=== PATIENT | female | born 1955 | race Caucasian/White ===

== ENCOUNTER 2016-07-20 00:05 | Emergency (ER) | payer OTHER ==
[~2016-07-20 00:05] MED LIST: AMLO5TAB2 PO; BUSP5TAB PO; DIAZ5 PO; OLAN5TAB PO
[2016-07-20 00:08] VITALS: BP 143/67; PULSE 84; RESP 16; TEMP 97.5; O2SAT 97
[2016-07-20 01:44] VITALS: BP 114/80; PULSE 74; RESP 16; O2SAT 99
[2016-07-20] MEDS ORDERED: ALPRAZolam 0.5 MG TAB PO ONE (02:00)
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
--- NOTE | 2016-07-20 08:26 | EKG ---
Date Performed: 07/20/2016 Time Performed: 01:58:01 PTAGE: 61 years EKG: Sinus rhythm POOR R WAVE PROGRESSION ABNORMAL ECG PREVIOUS TRACING : 07/02/2016 00.57 No significant change from previous tracing noted. DOCTOR: Darius Beckman Interpretating Date/Time 07/20/2016 08:24:58
== END 2016-07-20 06:00 | disposition home or self-care (01) ==
LOC: NEPC 00:05
DX: F41.9 Anxiety disorder, unspecified (principal); I10 Essential (primary) hypertension
CPT/HCPCS: 93005

== ENCOUNTER 2016-08-02 18:28 | Emergency (ER) | payer OTHER ==
[2016-08-02 18:30] VITALS: BP 135/78; PULSE 97; RESP 16; TEMP 97.9; O2SAT 96
--- NOTE | 2016-08-02 18:43 | PD ---
HPI Chief Complaint: Anxiety Time Seen by Provider: 18:43 Travel History International Travel<30 days: No Contact w/Intl Traveler<30days: No Traveled to known affect area: No History of Present Illness HPI 61-year-old female with history of anxiety, depression, hypertension and IBS presents to the ED for evaluation of anxiety. Patient states that she has been unable sleep and is feeling very anxious. She states that she has been seen in the ED before provided with Xanax and allowed to sleep. She denies chest pain, palpitations, nausea, vomiting, diaphoresis. She denies abdominal pain, dysuria. She states that she has a psychiatrist but that the medication she was provided have not helped her sleep. She denies suicidal or homicidal ideation. She states repeatedly that she would like to be administered Xanax and allowed to sleep. PFSH Past Medical History Anxiety: Yes (panic attacks) Depression: Yes Heart Rhythm Problems: No Cancer: No Cardiac Catheterization: No Cardiovascular Problems: Yes (HTN) High Cholesterol: No Congestive Heart Failure: No Diminished Hearing: No Diverticulitis: Yes Endocrine: No Gastrointestinal Disorders: Yes (IRRITABLE BOWEL SYNDROME, ) Genitourinary: No Hiatal Hernia: Yes Heparin Induced Thrombocytopen: No Hypertension: Yes Immune Disorder: No Implanted Vascular Access Dvce: No Musculoskeletal: No Neurologic: No Psychiatric: Yes Respiratory: No Immunizations Current: Yes Ulcer: Yes Menopausal: Yes : 1 Para: 1 Miscarriage: 0 : 0 Past Surgical History Abdominal Surgery: Yes (c section) Section: Yes Coronary Artery Bypass Graft: No Hysterectomy: No Tonsillectomy: Yes Other Surgery: Yes Family History Family Hypercholesterolemia: Yes Social History Alcohol Use: No Tobacco Use: No Substance Use: No Allergies-Medications (Allergen,Severity, Reaction): Coded Allergies: Cipro (Verified Allergy, Severe, 08/02/16) Vicodin (Verified Allergy, Severe, VOMITING, 08/02/16) Reported Meds & Prescriptions Reported Meds & Active Scripts Active Reported Olanzapine 5 Mg Tab 5 Mg PO HS Valium (Diazepam) 5 Mg Tab 5 Mg PO HS PRN Buspirone (Buspirone HCl) 5 Mg Tab 5 Mg PO BID Amlodipine (Amlodipine Besylate) 5 Mg Tab 5 Mg PO DAILY Review of Systems Except as stated in HPI: all other systems reviewed are Neg Physical Exam Narrative GENERAL: Well-nourished, well-developed white female no acute distress. PSYCHIATRIC: No delusional thought processes. No hallucinations. Flat affect. SKIN: Warm and dry. HEAD: Normocephalic. EYES: No scleral icterus. No injection or drainage. NECK: Supple, trachea midline. No JVD or lymphadenopathy. CARDIOVASCULAR: Regular rate and rhythm without murmurs, gallops, or rubs. 2+ DP and radial pulses bilaterally. RESPIRATORY: Breath sounds clear and equal bilaterally. No accessory muscle use. GASTROINTESTINAL: Abdomen soft, non-tender, nondistended. MUSCULOSKELETAL: No cyanosis, or edema. Patient is ambulatory, moves extremities spontaneously. BACK: Nontender without obvious deformity. No CVA tenderness. Data Data Last Documented VS Vital Signs Date Time Temp Pulse Resp B/P Pulse Ox O2 Delivery O2 Flow Rate FiO2 08/02/16 18:30 97.9 97 16 135/78 96 Orders Electrocardiogram (08/02/16 18:45) Hydroxyzine Hcl Inj (Vistaril Inj) (08/02/16 19:45) MDM Medical Decision Making Medical Screen Exam Complete: Yes Emergency Medical Condition: Yes Interpretation(s) EKG rate 78, sinus rhythm. Normal intervals. Normal axis. No ischemic changes. Reviewed by Dr. Davis. Differential Diagnosis Anxiety versus insomnia versus malingering versus drug seeking behavior versus less likely ACS versus other Narrative Course 61-year-old female with history of hypertension and IBS presents to the ED for evaluation of anxiety. Patient states that she has been unable sleep and is feeling very anxious. She states that she has been seen in the ED before provided with Xanax and allowed to sleep. She denies chest pain, palpitations, nausea, vomiting, diaphoresis. She denies abdominal pain, dysuria. She states that she has a psychiatrist but that the medication she was provided have not helped her sleep. She denies suicidal or homicidal ideation. She states repeatedly that she would like to be administered Xanax and allowed to sleep. Vitals reviewed. Physical exam reveals a nontoxic-appearing white female with a flat affect in no acute distress. Chest clear to auscultation bilaterally, abdomen soft and nontender. EKG as above. Review of the record reveals that the patient has 12 visits to the ED with the same complaint since February 2016. She underwent myocardial perfusion scan in October 2015 which was negative. She had a full workup with EKG, chest x-ray and labs in late June. Review of [facility] reveals that the patient is prescribed diazepam by a provider in the area. I do not feel further laboratory work would be fruitful. Administered IM Vistaril. ON recheck the patient is sleeping soundly in the stretcher. After being awakened for discharge she states that she is still anxious, again request Xanax. She was then observed to wander through the emergency department , looking into other patient's rooms. I instructed the patient to establish good sleep habits, follow-up with her psychiatrist or primary care provider. I advised her that seeking sleep medications in the emergency room is an inappropriate use of resources that could be better served on an outpatient basis. This patient is stable and discharged home. Diagnosis Primary Impression: Anxiety Referrals: Primary Care Physician Patient Instructions: Anxiety (ED), General Instructions Additional Instructions: Rest, hydrate. Establish good sleep habits including going to bed at the same time every night , in a darkened room, avoiding stimulants after 2 PM. This is an inefficient way to manage anxiety, please see your primary care provider or psychiatrist for sleep aids or prescription anxiolytics. Return to the ED for any urgent or emergent medical condition. Disposition: DISCHARGE HOME Condition: Stable Mamie Bentley Aug 02, 2016 18:43
[2016-08-02] MEDS ORDERED: hydrOXYzine HCL 50 MG/ML VIAL IM ONE (19:45)
[2016-08-02 21:16] VITALS: BP 118/63; TEMP 98.5
--- NOTE | 2016-08-03 17:21 | EKG ---
Date Performed: 08/02/2016 Time Performed: 18:51:43 PTAGE: 61 years EKG: Sinus rhythm Compared to prior tracing no significant change NORMAL ECG PREVIOUS TRACING : 07/20/2016 01.58 DOCTOR: Alley Villarreal Interpretating Date/Time 08/03/2016 17:20:38
== END 2016-08-02 21:20 | disposition home or self-care (01) ==
LOC: NEPA 18:28
DX: F41.9 Anxiety disorder, unspecified (principal); I10 Essential (primary) hypertension
CPT/HCPCS: 93005; 96372; 99283; J3410

== ENCOUNTER 2016-08-11 08:54 | Emergency (ER) | payer OTHER ==
[~2016-08-11] VITALS: Ht 152.4 cm; Wt 50.0 kg
--- NOTE | 2016-08-11 08:58 | PD ---
HPI Chief Complaint: suicidal ideation Time Seen by Provider: 08:57 Travel History International Travel<30 days: No Contact w/Intl Traveler<30days: No Traveled to known affect area: No History of Present Illness HPI 61-year-old female with history of depression, anxiety, seen in the emergency department several times for issues with anxiety, brought in by ambulance from home stating that she has not slept in the last 2 days and that she does not feel right and she feels like committing suicide by overdosing on aspirin. Patient reports that she feels somewhat nauseous. No other physical complaints. She has not ingested anything or done anything to harm herself. No fevers or recent illness. The patient was placed under [place] act by me after I assessed her. PFSH Past Medical History Anxiety: Yes (panic attacks) Depression: Yes Heart Rhythm Problems: No Cancer: No Cardiac Catheterization: No Cardiovascular Problems: Yes (HTN) High Cholesterol: No Congestive Heart Failure: No Diminished Hearing: No Diverticulitis: Yes Endocrine: No Gastrointestinal Disorders: Yes (IRRITABLE BOWEL SYNDROME, ) Genitourinary: No Hiatal Hernia: Yes Heparin Induced Thrombocytopen: No Hypertension: Yes Immune Disorder: No Implanted Vascular Access Dvce: No Musculoskeletal: No Neurologic: No Psychiatric: Yes Respiratory: No Immunizations Current: Yes Ulcer: Yes Menopausal: Yes : 1 Para: 1 Miscarriage: 0 : 0 Past Surgical History Abdominal Surgery: Yes (c section) Section: Yes Coronary Artery Bypass Graft: No Hysterectomy: No Tonsillectomy: Yes Other Surgery: Yes Family History Family Hypercholesterolemia: Yes Social History Alcohol Use: No Tobacco Use: No Substance Use: No Allergies-Medications (Allergen,Severity, Reaction): Coded Allergies: Cipro (Verified Allergy, Severe, 08/02/16) Vicodin (Verified Allergy, Severe, VOMITING, 08/02/16) Vistaril (Verified Adverse Reaction, Mild, Lethargy, 08/11/16) Reported Meds & Prescriptions Reported Meds & Active Scripts Active Reported Olanzapine 5 Mg Tab 5 Mg PO HS Valium (Diazepam) 5 Mg Tab 5 Mg PO HS PRN Buspirone (Buspirone HCl) 5 Mg Tab 5 Mg PO BID Amlodipine (Amlodipine Besylate) 5 Mg Tab 5 Mg PO DAILY Review of Systems Except as stated in HPI: all other systems reviewed are Neg Physical Exam Narrative GENERAL: Well-developed, well-nourished, comfortable, no acute distress. SKIN: Warm and dry. No rash. HEAD: Atraumatic. Normocephalic. EYES: Pupils equal and round. No scleral icterus. No injection or drainage. ENT: No nasal bleeding or discharge. Mucous membranes pink and moist. NECK: Trachea midline. No JVD. CARDIOVASCULAR: Regular rate and rhythm. RESPIRATORY: No accessory muscle use. Clear to auscultation. Breath sounds equal bilaterally. GASTROINTESTINAL: Abdomen soft, non-tender, nondistended. MUSCULOSKELETAL: No obvious deformities. No clubbing. No cyanosis. No edema. NEUROLOGICAL: Awake and alert. No obvious cranial nerve deficits. Motor grossly within normal limits. Normal speech. PSYCHIATRIC: Flat affect. Poor eye contact. Data Data Last Documented VS Vital Signs Date Time Temp Pulse Resp B/P Pulse Ox O2 Delivery O2 Flow Rate FiO2 08/11/16 09:05 98.7 79 20 120/77 96 Orders Complete Blood Count With Diff (08/11/16 08:59) Comprehensive Metabolic Panel (08/11/16 08:59) Drug Screen, Random Urine (08/11/16 08:59) Alcohol (Ethanol) (08/11/16 08:59) Salicylates (Aspirin) (08/11/16 08:59) Tylenol (Acetaminophen) (08/11/16 08:59) Psych Screen (08/11/16 08:59) Metoclopramide Inj (Reglan Inj) (08/11/16 09:00) Labs Laboratory Tests Test 08/11/16 09:25 White Blood Count 6.4 TH/MM3 Red Blood Count 4.52 MIL/MM3 Hemoglobin 12.1 GM/DL Hematocrit 36.6 % Mean Corpuscular Volume 81.0 FL Mean Corpuscular Hemoglobin 26.7 PG Mean Corpuscular Hemoglobin 33.0 % Concent Red Cell Distribution Width 16.1 % Platelet Count 259 TH/MM3 Mean Platelet Volume 8.2 FL Neutrophils (%) (Auto) 69.8 % Lymphocytes (%) (Auto) 20.2 % Monocytes (%) (Auto) 8.3 % Eosinophils (%) (Auto) 1.2 % Basophils (%) (Auto) 0.5 % Neutrophils # (Auto) 4.5 TH/MM3 Lymphocytes # (Auto) 1.3 TH/MM3 Monocytes # (Auto) 0.5 TH/MM3 Eosinophils # (Auto) 0.1 TH/MM3 Basophils # (Auto) 0.0 TH/MM3 CBC Comment DIFF FINAL Differential Comment Sodium Level 140 MEQ/L Potassium Level 3.6 MEQ/L Chloride Level 105 MEQ/L Carbon Dioxide Level 30.4 MEQ/L Anion Gap 5 MEQ/L Blood Urea Nitrogen 10 MG/DL Creatinine 0.77 MG/DL Estimat Glomerular Filtration 76 ML/MIN Rate Random Glucose 118 MG/DL Calcium Level 9.1 MG/DL Total Bilirubin 0.4 MG/DL Aspartate Amino Transf 6 U/L (AST/SGOT) Alanine Aminotransferase 15 U/L (ALT/SGPT) Alkaline Phosphatase 74 U/L Total Protein 7.8 GM/DL Albumin 3.7 GM/DL Salicylates Level LESS THAN 1.7 MG/DL Urine Opiates Screen NEG Acetaminophen Level LESS THAN 2.0 MCG/ML Urine Barbiturates Screen NEG Urine Amphetamines Screen NEG Urine Benzodiazepines Screen POS Urine Cocaine Screen NEG Urine Cannabinoids Screen NEG Ethyl Alcohol Level LESS THAN 3 MG/DL MDM Medical Decision Making Medical Screen Exam Complete: Yes Emergency Medical Condition: Yes Medical Record Reviewed: Yes Differential Diagnosis Depression, suicidal ideation, acute psychosis Narrative Course Vital signs are within normal limits. CBC is unremarkable. CMP is unremarkable. Tylenol, alcohol, and salicylate levels are negative. Urine drug screen is positive for benzodiazepines. The patient is well-appearing. She is requesting something to eat. She is medically cleared for psychiatric evaluation and disposition by them. Diagnosis Primary Impression: Suicidal ideation David Gaffney MD Aug 11, 2016 08:58
[2016-08-11] MEDS ORDERED: METOCLOPRAMIDE HCL 10 MG/2 ML VIAL IV PUSH ONE (09:00)
[2016-08-11 09:05] VITALS: BP 120/77; PULSE 79; RESP 20; TEMP 98.7; O2SAT 96
[2016-08-11 09:37] LABS: AUTOMATED NEUTROPHIL # 4.5 TH/MM3 (1.8-7.7); BASOPHIL % 0.5 % (0.0-2.0); EOSINOPHIL # 0.1 TH/MM3 (0-0.4); EOSINOPHIL % 1.2 % (0.0-4.0); HEMATOCRIT 36.6 % (35.0-46.0); HEMO FLAGS DIFF FINAL; LYMPH % 20.2 % (9.0-44.0); LYMPHOCYTE # 1.3 TH/MM3 (1.0-4.8); MEAN CORPUSCULAR HEMOGLOBIN 26.7 PG (27.0-34.0); MONO % 8.3 % (0.0-8.0); NEUT % 69.8 % (16.0-70.0); PLATELET COUNT 259 TH/MM3 (150-450); RED BLOOD COUNT 4.52 MIL/MM3 (4.00-5.30); RED CELL DISTRIBUTION WIDTH 16.1 % (11.6-17.2); WHITE BLOOD COUNT 6.4 TH/MM3 (4.0-11.0)
[2016-08-11 09:44] LABS: AMPHETAMINE, URINE NEG (NEG); BARBITURATES, URINE NEG (NEG); COCAINE, URINE NEG (NEG)
[2016-08-11 10:07] LABS: ACETAMINOPHEN LESS THAN 2.0 MCG/ML (10.0-30.0); ALT (GPT) 15 U/L (10-53); ANION GAP 5 MEQ/L (5-15); AST (GOT) 6 U/L (15-37); BICARBONATE 30.4 MEQ/L (21.0-32.0); BLOOD UREA NITROGEN 10 MG/DL (7-18); CHLORIDE 105 MEQ/L (98-107); GLOMERULAR FILTRATION RATE 76 ML/MIN (>89); POTASSIUM 3.6 MEQ/L (3.5-5.1); SODIUM (NA) 140 MEQ/L (136-145)
[2016-08-11 10:11] LABS: ALKALINE PHOSPHATASE 74 U/L (45-117); TOTAL BILIRUBIN ADULT 0.4 MG/DL (0.2-1.0)
[2016-08-11 13:00] VITALS: BP 118/74; PULSE 78; RESP 20; O2SAT 98
[2016-08-11 14:39] VITALS: BP 146/73; PULSE 65; RESP 18; TEMP 98.7; O2SAT 98
[2016-08-11 18:18] VITALS: BP 126/73; PULSE 93; RESP 18; O2SAT 97
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
[2016-08-11] MEDS ORDERED: diphenhydrAMINE HCL 50 MG CAP PO ONE (19:30)
[2016-08-11] MEDS ORDERED: MIRTAZAPINE 15 MG TAB PO ONE (19:45)
[2016-08-11] MEDS ORDERED: OLANZapine 5 MG TAB PO SCH (21:00)
[2016-08-11] MEDS ORDERED: busPIRone HCL 5 MG TAB PO SCH (21:00)
[2016-08-12] MEDS ORDERED: amLODIPine BESYLATE 5 MG TAB PO SCH (09:00)
== END 2016-08-11 22:32 ==
LOC: NEPC 08:54 → NEPJ 22:32
DX: R45.851 Suicidal ideations (principal); F41.1 Generalized anxiety disorder; I10 Essential (primary) hypertension
CPT/HCPCS: 80053; 80307; 80320; 85025; 96374; 99284; J2765; Q0163; 80329; G0480

== ENCOUNTER 2016-08-30 12:07 | Emergency (ER) | payer OTHER ==
[~2016-08-30] VITALS: Ht 152.4 cm; Wt 55.0 kg
[2016-08-30 12:11] VITALS: BP 113/74; PULSE 92; RESP 16; TEMP 98.1; O2SAT 98
[2016-08-30] MEDS ORDERED: SODIUM CHLOR 0.9% 1000 ML INJ 1,000 ML IV SCH (12:39)
[2016-08-30] MEDS ORDERED: SODIUM CHLORIDE 0.9% FLUSH 5 ML FLUSH IVF PRN (12:45)
[2016-08-30 12:57] LABS: AUTOMATED NEUTROPHIL # 7.8 TH/MM3 (1.8-7.7); BASOPHIL # 0.1 TH/MM3 (0-0.2); BASOPHIL % 0.6 % (0.0-2.0); EOSINOPHIL % 0.2 % (0.0-4.0); HEMATOCRIT 35.4 % (35.0-46.0); HEMO FLAGS DIFF FINAL; LYMPH % 13.3 % (9.0-44.0); LYMPHOCYTE # 1.3 TH/MM3 (1.0-4.8); MEAN CELL VOLUME 81.6 FL (80.0-100.0); MEAN CORPUSCULAR HEMOGLOBIN 27.3 PG (27.0-34.0); MEAN CORPUSCULAR HGB CONC 33.4 % (32.0-36.0); MONO % 6.9 % (0.0-8.0); PLATELET COUNT 290 TH/MM3 (150-450); RED BLOOD COUNT 4.34 MIL/MM3 (4.00-5.30); RED CELL DISTRIBUTION WIDTH 16.2 % (11.6-17.2); WHITE BLOOD COUNT 9.9 TH/MM3 (4.0-11.0)
[2016-08-30 13:04] LABS: BLOOD, URINE MOD (NEG); CALCIUM OXALATE CRYSTALS,URINE FEW /hpf; COMMENT (UR) CULT NOT INDICATED; CULTURE IF INDICATED CULT NOT INDICATED; GLUCOSE,URINE NEG (NEG); KETONE, URINE NEG (NEG); MUCUS URINE MANY /lpf (OCC); NITRITE,URINE NEG (NEG); SQUAMOUS EPITHELIAL CELL URINE 2 /hpf (0-5); TRANSITIONAL EPI CELLS, URINE <1 /hpf; URINE COLOR YELLOW (YELLW/STRAW)
[2016-08-30 13:06] LABS: APTT (PATIENT) 25.7 SEC (24.3-30.1); PROTHROMBIN TIME - PATIENT 11.5 SEC (9.8-11.6)
[2016-08-30] MEDS ORDERED: IOHEXOL 350 MG/ML 10 ML VIAL (for RAD DIAG) IV ONE (13:09)
[2016-08-30 13:10] LABS: ANION GAP 11 MEQ/L (5-15); AST (GOT) 6 U/L (15-37); BICARBONATE 25.9 MEQ/L (21.0-32.0); BLOOD UREA NITROGEN 13 MG/DL (7-18); CHLORIDE 107 MEQ/L (98-107); GLOMERULAR FILTRATION RATE 67 ML/MIN (>89); POTASSIUM 3.1 MEQ/L (3.5-5.1); SODIUM (NA) 144 MEQ/L (136-145)
--- NOTE | 2016-08-30 13:14 | PD ---
HPI Chief Complaint: Chest Pain Time Seen by Provider: 12:32 Travel History International Travel<30 days: No Contact w/Intl Traveler<30days: No Traveled to known affect area: No History of Present Illness HPI Patient is a 61-year-old female who presents to emergency room with multiple complaints. Patient reports that she is very anxious, reports that for the past month, she has not been able to have a normal bowel movement. She reports that she feels constipated and feels like she is full of stool. Reports that she has been having intermittent pains to her left chest, reports that pain feels like a sharp and stabbing sensation and lasts for less than a minute and resolved on its own. Patient with no diaphoresis or shortness of breath with symptoms. Patient with no nausea or vomiting. Patient reports that symptoms are worse when she is anxious. PFSH Past Medical History Anxiety: Yes (panic attacks) Depression: Yes Heart Rhythm Problems: No Cancer: No Cardiac Catheterization: No Cardiovascular Problems: Yes (HTN) High Cholesterol: No Congestive Heart Failure: No Diminished Hearing: No Diverticulitis: Yes Endocrine: No Gastrointestinal Disorders: Yes (IRRITABLE BOWEL SYNDROME, ) Genitourinary: No Hiatal Hernia: Yes Heparin Induced Thrombocytopen: No Hypertension: Yes Immune Disorder: No Implanted Vascular Access Dvce: No Musculoskeletal: No Neurologic: No Psychiatric: Yes Respiratory: No Immunizations Current: Yes Ulcer: Yes Influenza Vaccination: Yes Menopausal: Yes : 1 Para: 1 Miscarriage: 0 : 0 Past Surgical History Abdominal Surgery: Yes (c section) Section: Yes Coronary Artery Bypass Graft: No Hysterectomy: No Tonsillectomy: Yes Other Surgery: Yes Family History Family Hypercholesterolemia: Yes Social History Alcohol Use: Yes Tobacco Use: No Substance Use: No (Denies) Allergies-Medications (Allergen,Severity, Reaction): Coded Allergies: Cipro (Verified Allergy, Severe, 08/30/16) Vicodin (Verified Allergy, Severe, VOMITING, 08/30/16) Vistaril (Verified Adverse Reaction, Mild, Lethargy, 08/30/16) Reported Meds & Prescriptions Reported Meds & Active Scripts Active Reported Olanzapine 5 Mg Tab 5 Mg PO HS Buspirone (Buspirone HCl) 5 Mg Tab 5 Mg PO BID Amlodipine (Amlodipine Besylate) 5 Mg Tab 5 Mg PO DAILY Review of Systems General / Constitutional: No: Fever Eyes: No: Visual changes HENT: No: Headaches Cardiovascular: Positive: Chest Pain or Discomfort, Palpitations Respiratory: No: Shortness of Breath Gastrointestinal: Positive: Constipation, No: Nausea, Vomiting, Diarrhea, Abdominal Pain Genitourinary: No: Dysuria Musculoskeletal: No: Pain Skin: No Rash Neurologic: No: Weakness Psychiatric: No: Depression Endocrine: No: Polydipsia Hematologic/Lymphatic: No: Easy Bruising Physical Exam Narrative GENERAL: No acute distress, nontoxic SKIN: Warm and dry. HEAD: Atraumatic. Normocephalic. EYES: Pupils equal and round. No scleral icterus. No injection or drainage. ENT: No nasal bleeding or discharge. Mucous membranes pink and moist. NECK: Trachea midline. No JVD. CARDIOVASCULAR: Regular rate and rhythm. No murmur appreciated. RESPIRATORY: No accessory muscle use. Clear to auscultation. Breath sounds equal bilaterally. GASTROINTESTINAL: Abdomen soft, non-tender, nondistended. Hepatic and splenic margins not palpable. MUSCULOSKELETAL: No obvious deformities. No clubbing. No cyanosis. No edema. NEUROLOGICAL: Awake and alert. No obvious cranial nerve deficits. Motor grossly within normal limits. Normal speech. PSYCHIATRIC: Appropriate mood and affect; insight and judgment normal. Data Data Last Documented VS Vital Signs Date Time Temp Pulse Resp B/P Pulse Ox O2 Delivery O2 Flow Rate FiO2 08/30/16 13:47 112 18 140/74 98 Room Air 08/30/16 12:11 98.1 Orders Electrocardiogram (08/30/16 ) Complete Blood Count With Diff (08/30/16 12:39) Comprehensive Metabolic Panel (08/30/16 12:39) Lipase (08/30/16 12:39) Prothrombin Time / Inr (Pt) (08/30/16 12:39) Act Partial Throm Time (Ptt) (08/30/16 12:39) Urinalysis - C+S If Indicated (08/30/16 12:39) Iv Access Insert/Monitor (08/30/16 12:39) Sodium Chlor 0.9% 1000 Ml Inj (Ns 1000 M (08/30/16 12:39) Sodium Chloride 0.9% Flush (Ns Flush) (08/30/16 12:45) Chest, Single Ap (08/30/16 12:39) Ct Abd/Pel W & W/O Iv Contrast (08/30/16 12:39) Ckmb (Isoenzyme) Profile (08/30/16 14:00) Troponin I (08/30/16 14:00) Labs Laboratory Tests Test 08/30/16 12:43 White Blood Count 9.9 TH/MM3 Red Blood Count 4.34 MIL/MM3 Hemoglobin 11.8 GM/DL Hematocrit 35.4 % Mean Corpuscular Volume 81.6 FL Mean Corpuscular Hemoglobin 27.3 PG Mean Corpuscular Hemoglobin 33.4 % Concent Red Cell Distribution Width 16.2 % Platelet Count 290 TH/MM3 Mean Platelet Volume 8.6 FL Neutrophils (%) (Auto) 79.0 % Lymphocytes (%) (Auto) 13.3 % Monocytes (%) (Auto) 6.9 % Eosinophils (%) (Auto) 0.2 % Basophils (%) (Auto) 0.6 % Neutrophils # (Auto) 7.8 TH/MM3 Lymphocytes # (Auto) 1.3 TH/MM3 Monocytes # (Auto) 0.7 TH/MM3 Eosinophils # (Auto) 0.0 TH/MM3 Basophils # (Auto) 0.1 TH/MM3 CBC Comment DIFF FINAL Differential Comment Prothrombin Time 11.5 SEC Prothromb Time International 1.0 RATIO Ratio Activated Partial 25.7 SEC Thromboplast Time Urine Color YELLOW Urine Turbidity HAZY Urine pH 6.0 Urine Specific [place] 1.026 Urine Protein 30 mg/dL Urine Glucose (UA) NEG mg/dL Urine Ketones NEG mg/dL Urine Occult Blood MOD Urine Nitrite NEG Urine Bilirubin NEG Urine Urobilinogen 2.0 MG/DL Urine Leukocyte Esterase SMALL Urine RBC 27 /hpf Urine WBC 4 /hpf Urine Squamous Epithelial 2 /hpf Cells Urine Transitional Epithelial <1 /hpf Cells Urine Calcium Oxalate Crystals FEW /hpf Urine Mucus MANY /lpf Microscopic Urinalysis Comment CULT NOT INDICATED Sodium Level 144 MEQ/L Potassium Level 3.1 MEQ/L Chloride Level 107 MEQ/L Carbon Dioxide Level 25.9 MEQ/L Anion Gap 11 MEQ/L Blood Urea Nitrogen 13 MG/DL Creatinine 0.86 MG/DL Estimat Glomerular Filtration 67 ML/MIN Rate Random Glucose 146 MG/DL Calcium Level 9.1 MG/DL Total Bilirubin 0.4 MG/DL Aspartate Amino Transf 6 U/L (AST/SGOT) Alanine Aminotransferase 13 U/L (ALT/SGPT) Alkaline Phosphatase 70 U/L Total Creatine Kinase 32 U/L Troponin I LESS THAN 0.02 NG/ML Total Protein 7.5 GM/DL Albumin 3.5 GM/DL Lipase 95 U/L [facility] Medical Decision Making Medical Screen Exam Complete: Yes Emergency Medical Condition: Yes Interpretation(s) EKG : NSR at 85 bpm, qt/qtc: 355/398, no acute st or t wave changes Vital Signs Date Time Temp Pulse Resp B/P Pulse Ox O2 Delivery O2 Flow Rate FiO2 08/30/16 12:11 98.1 92 16 113/74 98 Differential Diagnosis constipation, abdominal mass, acs, arrhythmia, anxiety disorder, dehydration, electrolyte abnormality Narrative Course Patient is a 61-year-old female who presents to the emergency room with multiple complaints. Patient reports that she has been having increased constipation and has not had a normal bowel movement in the past month. Patient denies any nausea or vomiting, reports that she has only been able to drink soups for the past couple month. Patient also complaining of left-lower chest pain, reports pain is sharp and stabbing in nature, reports that when she had these symptoms, they last less than a minute and resolves on its own. She was placed on a account service associate upon arrival to the emergency room. EKG obtained. EKG with no acute findings. Labs as well as CT of Abdomen and Pelvis Ordered to workup constipation CBC & BMP Diagram 08/30/16 12:43 Last Impressions Chest X-Ray 08/30/16 1239 Signed Impressions: Service Date/Time: Tuesday, August 30, 2016 12:57 - CONCLUSION: No acute cardiopulmonary disease identified. Valeriy Toussaint MD Abdomen/Pelvis CT 08/30/16 1239 Signed Impressions: Service Date/Time: Tuesday, August 30, 2016 13:09 - CONCLUSION: 1. Persistent severe circumferential thickening of the mid sigmoid colon adjacent to large colonic diverticulum. Differential diagnosis includes inflammatory change and neoplasm. Recommend direct visualization with colonoscopy if this has not been previously performed. 2. Right-sided scalene hernia containing a loop of small bowel. 3. Midline lower abdominal hernia containing a very small portion of the urinary bladder. 4. Multiple hepatic and splenic cysts. 5. Left renal calculus again seen. No evidence of hydronephrosis. Valeriy Toussaint MD All labs and all studies reviewed patient in detail. Patient with atypical presentation for chest pain. Discussed with patient need to follow-up with cassandra consultant as outpatient. I reviewed CAT scan results with patient in detail. Patient has persistent severe circumferential thickening of the mid sigmoid colon adjacent to a large colonic diverticulum. Discussed with patient that she will need to follow-up with the gastrointestinal doctor as soon as possible for an outpatient colonoscopy. Patient has had these findings on previous CAT scans, these findings are not new. I did give patient a copy of her CAT scan report as she will bring this her doctor's office for follow-up. She was given a referral for GI, signs and symptoms of when to return to the emergency room was reviewed with patient in detail. Diagnosis Primary Impression: Constipation Qualified Code: K59.00 - Constipation, unspecified constipation type Additional Impressions: Atypical chest pain Hernia Hepatic cyst Splenic cyst Mural thickening of sigmoid colon Referrals: Barbie Ruelas MD Patient Instructions: General Instructions Additional Instructions: Please follow-up with your GI doctor as soon as possible Please bring your CAT scan report to doctor's office for follow-up Please return to the emergency room as needed or if symptoms persist or worsen Please call your primary care doctor first thing in the morning for earliest follow-up Disposition: 01 DISCHARGE HOME Condition: Stable Martha Rosafer Calos DO Aug 30, 2016 13:14
[2016-08-30 13:15] LABS: ALKALINE PHOSPHATASE 70 U/L (45-117); ALT (GPT) 13 U/L (10-53); TOTAL BILIRUBIN ADULT 0.4 MG/DL (0.2-1.0)
--- NOTE | 2016-08-30 13:45 | RADRPT ---
EXAM DATE/TIME: 08/30/2016 12:57 [facility] COMPARISON: CHEST SINGLE AP, July 02, 2016, 1:08. INDICATIONS : Chest pain. MEDICAL HISTORY : None. SURGICAL HISTORY : None. ENCOUNTER: Initial ACUITY: 1 day PAIN SCORE: 0/10 LOCATION: Bilateral chest FINDINGS: Single AP view of the chest. The lungs are clear. Cardiomediastinal silhouette within normal limits. No evidence of pleural effusion or pneumothorax. No evidence of free air. Rounded calcified mass in t he spleen grossly unchanged measuring 6.7 cm. CONCLUSION: No acute cardiopulmonary disease identified. Valeriy Toussaint MD on August 30, 2016 at 13:41 Board Certified Radiologist. This report was verified electronically.
[2016-08-30 13:47] VITALS: BP 140/74; PULSE 112; RESP 18; O2SAT 98
--- NOTE | 2016-08-30 14:16 | RADRPT ---
EXAM DATE/TIME: 08/30/2016 13:09 [facility] COMPARISON: GASTROGRAFIN ENEMA, October 29, 2015, 10:29. CT ABDOMEN & PELVIS W/O CONTRAST, October 28, 2015, 22:22. INDICATIONS : Abdomen pain. ORAL CONTRAST: No oral contrast ingested. RADIATION DOSE: 4.52 CTDIvol (mGy) MEDICAL HISTORY : Cardiovascular disease. Hypertension. Hernia, hiatal. SURGICAL HISTORY : None. ENCOUNTER: Initial ACUITY: 1 day PAIN SCALE: 5/10 LOCATION: Bilateral abdomen. TECHNIQUE: Volumetric scanning of the abdomen and pelvis was performed. Using automated exposure control and ad justment of the mA and/or kV according to patient size, radiation dose was kept as low as reasonably achievable to obtain optimal diagnostic quality images. FINDINGS: LOWER LUNGS: The visualized lower lungs are clear. LIVER: Multiple rounded hepatic hypodensities indicating cysts, unchanged. The largest is in the inferior ri ght lobe measuring 6.5 cm. SPLEEN: 7.1 cm cystic mass in the spleen with a calcified rim unchanged. Other splenic cysts also unchanged. PANCREAS: Within normal limits. KIDNEYS: Bilateral renal cysts unchanged. 8mm calculus is seen in the lower pole of the left kidney. This has migrated from the midpole. No evidence of hydronephrosis. No ureteral calculi. ADRENAL GLANDS: Within normal limits. VASCULAR: Aortic calcification. Aortic diameter within normal limits. BOWEL/MESENTERY: There is severe circumferential wall thickening of the mid sigmoid colon again identified adjacent to the prominent diverticulum. No surrounding inflammatory changes are seen. Multiple additional coloni c diverticula are noted. No free air or free fluid. No organized abscess seen. Appendix within normal limits. ABDOMINAL WALL: There is a fat-containing hernia in the midline lower abdomen again seen extending between the rectus abdominous muscle bellies. The neck of the hernia measures 6 mm. Hernia measures 5 cm in width. A sm all portion of the urinary bladder appears to extend into the hernia sac. Right-sided spigelian herni a is again seen and unchanged, containing a loop of small bowel. No evidence of bowel dilatation or w all thickening in this region. RETROPERITONEUM: There is no lymphadenopathy. BLADDER: No wall thickening or mass. REPRODUCTIVE: Within normal limits. INGUINAL: There is no lymphadenopathy or hernia. MUSCULOSKELETAL: Degenerative findings of the lumbar spine. CONCLUSION: 1. Persistent severe circumferential thickening of the mid sigmoid colon adjacent to large colonic di verticulum. Differential diagnosis includes inflammatory change and neoplasm. Recommend direct visual ization with colonoscopy if this has not been previously performed. 2. Right-sided scalene hernia containing a loop of small bowel. 3. Midline lower abdominal hernia containing a very small portion of the urinary bladder. 4. Multiple hepatic and splenic cysts. 5. Left renal calculus again seen. No evidence of hydronephrosis. Valeriy Toussaint MD on August 30, 2016 at 14:02 Board Certified Radiologist. This report was verified electronically.
[2016-08-30 14:56] LABS: CREATINE KINASE 32 U/L (26-192)
--- NOTE | 2016-08-31 14:37 | EKG ---
Date Performed: 08/30/2016 Time Performed: 12:23:17 PTAGE: 61 years EKG: Sinus rhythm WITH SHORT AK INTERVAL BORDERLINE ECG PREVIOUS TRACING : 08/02/2016 18.51 DOCTOR: Julian Garcia Interpretating Date/Time 08/31/2016 14:32:28
== END 2016-08-30 15:11 | disposition home or self-care (01) ==
LOC: NEPA 12:07
DX: K59.00 Constipation, unspecified (principal); R07.89 Other chest pain; K76.89 Other specified diseases of liver; D73.4 Cyst of spleen; R94.31 Abnormal electrocardiogram [ECG] [EKG]; I10 Essential (primary) hypertension; K58.9 Irritable bowel syndrome, unspecified
CPT/HCPCS: 71010; 74178; 80053; 81001; 82550; 83690; 84484; 85025; 85610; 85730; 93005; 96360; 99285; J7030; Q9967

== ENCOUNTER 2016-09-06 17:46 | Emergency (ER) | payer OTHER ==
[~2016-09-06] VITALS: Ht 152.4 cm; Wt 50.0 kg
[~2016-09-06 17:46] MED LIST changes: -DIAZ5 PO
[2016-09-06 17:48] VITALS: BP 180/93; PULSE 130; RESP 20; TEMP 97.8; O2SAT 93
--- NOTE | 2016-09-06 18:15 | PD ---
HPI Chief Complaint: Psychiatric Symptoms Time Seen by Provider: 18:14 Travel History International Travel<30 days: No Contact w/Intl Traveler<30days: No Traveled to known affect area: No History of Present Illness HPI 61 year old female with PMH of HTN, IBS, panic disorder, anxiety and depression presents to the ED for voluntary psychiatric evaluation. Patient states that her mind has been racing. She states that she feels like every time she closes her eyes she might . She denies suicidal or homicidal ideation. She states that she feels well otherwise. She denies fevers, headache, dizziness, chest pain, palpitations, shortness of breath, abdominal pain, nausea vomiting, dysuria, back pain, weakness of the extremities. Endorses compliance with her daily medications. PFSH Past Medical History Anxiety: Yes (panic attacks) Depression: Yes Heart Rhythm Problems: No Cancer: No Cardiac Catheterization: No Cardiovascular Problems: Yes (HTN) High Cholesterol: No Congestive Heart Failure: No Diminished Hearing: No Diverticulitis: Yes Endocrine: No Gastrointestinal Disorders: Yes (IRRITABLE BOWEL SYNDROME, ) Genitourinary: No Hiatal Hernia: Yes Heparin Induced Thrombocytopen: No Hypertension: Yes Immune Disorder: No Implanted Vascular Access Dvce: No Musculoskeletal: No Neurologic: No Psychiatric: Yes Respiratory: No Immunizations Current: Yes Ulcer: Yes ?: Not Menopausal: Yes : 1 Para: 1 Miscarriage: 0 : 0 Past Surgical History Abdominal Surgery: Yes (c section) Section: Yes Coronary Artery Bypass Graft: No Hysterectomy: No Tonsillectomy: Yes Other Surgery: Yes Family History Family Hypercholesterolemia: Yes Social History Alcohol Use: Yes Tobacco Use: No Substance Use: No (Denies) Allergies-Medications (Allergen,Severity, Reaction): Coded Allergies: Cipro (Verified Allergy, Severe, 09/06/16) Vicodin (Verified Allergy, Severe, VOMITING, 09/06/16) Vistaril (Verified Adverse Reaction, Mild, Lethargy, 09/06/16) Reported Meds & Prescriptions Reported Meds & Active Scripts Active Reported Trazodone (Trazodone HCl) 50 Mg Tab 50 Mg PO HS Olanzapine 5 Mg Tab 5 Mg PO HS Buspirone (Buspirone HCl) 5 Mg Tab 5 Mg PO BID Amlodipine (Amlodipine Besylate) 5 Mg Tab 5 Mg PO DAILY Review of Systems Except as stated in HPI: all other systems reviewed are Neg Physical Exam Narrative GENERAL: Well-nourished, well-developed white female no acute distress. PSYCHIATRIC: No delusional thought processes. No hallucinations. Flat affect. SKIN: Warm and dry. HEAD: Normocephalic. EYES: No scleral icterus. No injection or drainage. NECK: Supple, trachea midline. No JVD or lymphadenopathy. CARDIOVASCULAR: Regular rate and rhythm without murmurs, gallops, or rubs. RESPIRATORY: Breath sounds clear and equal bilaterally. No accessory muscle use. GASTROINTESTINAL: Abdomen soft, non-tender, nondistended. Active bowel sounds. MUSCULOSKELETAL: No cyanosis, or edema. Patient is observed to walk with a normal gait. BACK: Nontender without obvious deformity. No CVA tenderness. Data Data Last Documented VS Vital Signs Date Time Temp Pulse Resp B/P Pulse Ox O2 Delivery O2 Flow Rate FiO2 09/06/16 19:10 15 09/06/16 17:48 97.8 130 180/93 93 Room Air Orders Complete Blood Count With Diff (09/06/16 18:05) Comprehensive Metabolic Panel (09/06/16 18:05) Urinalysis - C+S If Indicated (09/06/16 18:05) Psych Screen (09/06/16 18:05) Drug Screen, Random Urine (09/06/16 18:05) Alcohol (Ethanol) (09/06/16 18:05) Potassium Chloride (Kcl) (09/06/16 19:45) Labs Laboratory Tests Test 09/06/16 18:20 White Blood Count 11.3 TH/MM3 Red Blood Count 4.59 MIL/MM3 Hemoglobin 12.1 GM/DL Hematocrit 37.3 % Mean Corpuscular Volume 81.3 FL Mean Corpuscular Hemoglobin 26.3 PG Mean Corpuscular Hemoglobin 32.4 % Concent Red Cell Distribution Width 16.4 % Platelet Count 280 TH/MM3 Mean Platelet Volume 8.8 FL Neutrophils (%) (Auto) 75.8 % Lymphocytes (%) (Auto) 14.3 % Monocytes (%) (Auto) 8.7 % Eosinophils (%) (Auto) 0.8 % Basophils (%) (Auto) 0.4 % Neutrophils # (Auto) 8.6 TH/MM3 Lymphocytes # (Auto) 1.6 TH/MM3 Monocytes # (Auto) 1.0 TH/MM3 Eosinophils # (Auto) 0.1 TH/MM3 Basophils # (Auto) 0.0 TH/MM3 CBC Comment DIFF FINAL Differential Comment Urine Color YELLOW Urine Turbidity HAZY Urine pH 6.0 Urine Specific [place] 1.026 Urine Protein 100 mg/dL Urine Glucose (UA) TRACE mg/dL Urine Ketones NEG mg/dL Urine Occult Blood MOD Urine Nitrite NEG Urine Bilirubin NEG Urine Urobilinogen 2.0 MG/DL Urine Leukocyte Esterase SMALL Urine RBC 77 /hpf Urine WBC 7 /hpf Urine Squamous Epithelial 1 /hpf Cells Urine Mucus MANY /lpf Microscopic Urinalysis Comment CULT NOT INDICATED Sodium Level 141 MEQ/L Potassium Level 2.9 MEQ/L Chloride Level 104 MEQ/L Carbon Dioxide Level 25.5 MEQ/L Anion Gap 12 MEQ/L Blood Urea Nitrogen 11 MG/DL Creatinine 0.74 MG/DL Estimat Glomerular Filtration 80 ML/MIN Rate Random Glucose 198 MG/DL Calcium Level 8.9 MG/DL Total Bilirubin 0.3 MG/DL Aspartate Amino Transf 6 U/L (AST/SGOT) Alanine Aminotransferase 12 U/L (ALT/SGPT) Alkaline Phosphatase 71 U/L Total Protein 7.5 GM/DL Albumin 3.3 GM/DL Urine Opiates Screen NEG Urine Barbiturates Screen NEG Urine Amphetamines Screen NEG Urine Benzodiazepines Screen POS Urine Cocaine Screen NEG Urine Cannabinoids Screen NEG Ethyl Alcohol Level LESS THAN 3 MG/DL MDM Medical Decision Making Medical Screen Exam Complete: Yes Emergency Medical Condition: Yes Differential Diagnosis Adjustment disorder versus anxiety versus bipolar versus depression versus dementia versus electrolyte disorder versus malingering versus mood disorder versus ODD versus psychosis versus PTSD versus schizophrenia versus schizoaffective disorder versus substance-induced mood disorder versus other Narrative Course 61 year old female with PMH of HTN, IBS, panic disorder, anxiety and depression presents to the ED for voluntary psychiatric evaluation. Patient states that her mind has been racing. She states that she feels like every time she closes her eyes she might . She denies suicidal or homicidal ideation. She states that she feels well otherwise. She denies fevers, headache, dizziness, chest pain, palpitations, shortness of breath, abdominal pain, nausea vomiting, dysuria, back pain, weakness of the extremities. Endorses compliance with her daily medications. Vitals reviewed. Physical exam reveals a nontoxic- appearing white female in no acute distress. Flat affect with physical exam is otherwise unremarkable. Laboratory workup reveals mild leukocytosis, likely stress reaction. Chemistries remarkable for potassium of 2.9. No culture of the UA indicated. Toxic screen positive for benzodiazepines. Patient was administered 40 mEq of potassium by mouth. She is medically clear for psychiatric evaluation. Patient was evaluated by FIOR Sparrow and found to be psychiatrically competent for discharge. This a long-standing, irrational , fixed, fear of the patient's. She is not suicidal or homicidal. She is instructed to follow-up with her therapist. She stable and discharged home. Diagnosis Primary Impression: Medical clearance for psychiatric admission Additional Impression: Hypokalemia Referrals: Psychiatrist Patient Instructions: General Instructions, Hypokalemia (ED) Additional Instructions: Follow-up with your therapist this week for further evaluation. Return to the ED for any urgent or emergent medical condition. Disposition: 01 DISCHARGE HOME Condition: Stable Mamie Bentley Sep 06, 2016 18:15
[2016-09-06 19:01] LABS: AUTOMATED NEUTROPHIL # 8.6 TH/MM3 (1.8-7.7); BASOPHIL % 0.4 % (0.0-2.0); EOSINOPHIL # 0.1 TH/MM3 (0-0.4); EOSINOPHIL % 0.8 % (0.0-4.0); HEMATOCRIT 37.3 % (35.0-46.0); HEMO FLAGS DIFF FINAL; LYMPH % 14.3 % (9.0-44.0); LYMPHOCYTE # 1.6 TH/MM3 (1.0-4.8); MEAN CELL VOLUME 81.3 FL (80.0-100.0); MEAN CORPUSCULAR HEMOGLOBIN 26.3 PG (27.0-34.0); MEAN CORPUSCULAR HGB CONC 32.4 % (32.0-36.0); MONO % 8.7 % (0.0-8.0); NEUT % 75.8 % (16.0-70.0); PLATELET COUNT 280 TH/MM3 (150-450); RED BLOOD COUNT 4.59 MIL/MM3 (4.00-5.30); RED CELL DISTRIBUTION WIDTH 16.4 % (11.6-17.2); WHITE BLOOD COUNT 11.3 TH/MM3 (4.0-11.0)
[2016-09-06 19:10] LABS: BLOOD, URINE MOD (NEG); COMMENT (UR) CULT NOT INDICATED; CULTURE IF INDICATED CULT NOT INDICATED; GLUCOSE,URINE TRACE mg/dL (NEG); KETONE, URINE NEG (NEG); MUCUS URINE MANY /lpf (OCC); NITRITE,URINE NEG (NEG); SQUAMOUS EPITHELIAL CELL URINE 1 /hpf (0-5); URINE COLOR YELLOW (YELLW/STRAW)
[2016-09-06 19:12] LABS: AMPHETAMINE, URINE NEG (NEG); BARBITURATES, URINE NEG (NEG); COCAINE, URINE NEG (NEG)
[2016-09-06] MEDS ORDERED: TRAZ50TA12 PO (19:14)
[2016-09-06 19:23] LABS: ALKALINE PHOSPHATASE 71 U/L (45-117); ALT (GPT) 12 U/L (10-53); ANION GAP 12 MEQ/L (5-15); AST (GOT) 6 U/L (15-37); BICARBONATE 25.5 MEQ/L (21.0-32.0); BLOOD UREA NITROGEN 11 MG/DL (7-18); CHLORIDE 104 MEQ/L (98-107); GLOMERULAR FILTRATION RATE 80 ML/MIN (>89); SODIUM (NA) 141 MEQ/L (136-145); TOTAL BILIRUBIN ADULT 0.3 MG/DL (0.2-1.0)
[2016-09-06 19:26] LABS: POTASSIUM 2.9 MEQ/L (3.5-5.1)
[2016-09-06] MEDS ORDERED: POTASSIUM CHLORIDE 20 MEQ CONTROLLED RELEASE TAB PO ONE (19:45)
== END 2016-09-06 21:07 | disposition home or self-care (01) ==
LOC: NEPC 17:46
DX: E87.6 Hypokalemia (principal); I10 Essential (primary) hypertension; K58.9 Irritable bowel syndrome, unspecified; F41.8 Other specified anxiety disorders
CPT/HCPCS: 80053; 80307; 80320; 81001; 85025; 99283

== ENCOUNTER 2016-10-21 08:59 | Emergency (ER) | payer OTHER ==
[~2016-10-21] VITALS: Ht 152.4 cm; Wt 43.0 kg
[~2016-10-21 08:59] MED LIST changes: +TRAZ50TA12 PO
[2016-10-21 09:08] VITALS: BP 149/90; PULSE 94; RESP 16; TEMP 98.3; O2SAT 99
--- NOTE | 2016-10-21 10:14 | PD ---
HPI . Constipation Chief Complaint: GI Complaint Time Seen by Provider: 09:59 Travel History International Travel<30 days: No Contact w/Intl Traveler<30days: No Traveled to known affect area: No History of Present Illness HPI Patient presents with constipation. She states that she has not had a bowel movement in 3 days. She states that her constipation is unrelieved by lactulose. She states that she is constipated due to psychiatric medications. He reports that this is a chronic issue for her. She rates the constipation as severe. PFSH Past Medical History Anxiety: Yes (panic attacks) Depression: Yes Heart Rhythm Problems: No Cancer: No Cardiac Catheterization: No Cardiovascular Problems: Yes (HTN) High Cholesterol: No Congestive Heart Failure: No Diminished Hearing: No Diverticulitis: Yes Endocrine: No Gastrointestinal Disorders: Yes (IRRITABLE BOWEL SYNDROME, ) Genitourinary: No Hiatal Hernia: Yes Heparin Induced Thrombocytopen: No Hypertension: Yes Immune Disorder: No Implanted Vascular Access Dvce: No Musculoskeletal: No Neurologic: No Psychiatric: Yes Respiratory: No Immunizations Current: Yes Ulcer: Yes ?: Not Menopausal: Yes : 1 Para: 1 Miscarriage: 0 : 0 Past Surgical History Abdominal Surgery: Yes (c section) Section: Yes Coronary Artery Bypass Graft: No Hysterectomy: No Tonsillectomy: Yes Other Surgery: Yes Family History Family Hypercholesterolemia: Yes Social History Alcohol Use: Yes Tobacco Use: No Substance Use: No (Denies) Allergies-Medications (Allergen,Severity, Reaction): Coded Allergies: Cipro (Verified Allergy, Severe, Nausea/Vomiting, 10/21/16) Vicodin (Verified Allergy, Severe, VOMITING, 09/06/16) Vistaril (Verified Adverse Reaction, Mild, Lethargy, 09/06/16) Reported Meds & Prescriptions Reported Meds & Active Scripts Active Reported Trazodone (Trazodone HCl) 50 Mg Tab 50 Mg PO HS Olanzapine 5 Mg Tab 5 Mg PO HS Buspirone (Buspirone HCl) 5 Mg Tab 5 Mg PO BID Amlodipine (Amlodipine Besylate) 5 Mg Tab 5 Mg PO DAILY Review of Systems Except as stated in HPI: all other systems reviewed are Neg General / Constitutional: No: Fever, Chills Gastrointestinal: Positive: Constipation, No: Nausea, Vomiting, Loss of Appetite Physical Exam Narrative GENERAL: Awake and alert and in no acute distress. Patient has been ambulatory back and forth between her room and the nurses station. SKIN: Warm and dry. CARDIOVASCULAR: Regular rate and rhythm. RESPIRATORY: No accessory muscle use. GI: Hard stool in the rectal vault. Was able to disimpact some of it. She has hemorrhoidal tissue all the way around her anus. He developed some mild bleeding with the disimpaction. MUSCULOSKELETAL: No obvious deformities. No edema. NEUROLOGICAL: Awake and alert. No obvious cranial nerve deficits. Motor grossly within normal limits. Normal speech. PSYCHIATRIC: Appropriate mood and affect; insight and judgment normal. Data Data Last Documented VS Vital Signs Date Time Temp Pulse Resp B/P Pulse Ox O2 Delivery O2 Flow Rate FiO2 10/21/16 09:08 98.3 94 16 149/90 99 Orders Fleets Enema (Adult) (Fleets Enema (Adul (10/21/16 10:15) MDM Medical Decision Making Medical Screen Exam Complete: Yes Emergency Medical Condition: Yes Differential Diagnosis Differential diagnosis of constipation includes medication effect, irritable bowel syndrome, inadequate fiber, bowel obstruction Narrative Course Patient presents with constipation. I have partially disimpact her. She will now be given an enema. The patient was given an enema but reports no subsequent bowel movement. Her stool in her rectal vault has been broken up. I will give her a bottle of magnesium citrate and discharge her to home. Diagnosis Primary Impression: Constipation Qualified Code: K59.03 - Drug-induced constipation Patient Instructions: Constipation (DC), General Instructions Disposition: 01 DISCHARGE HOME Condition: Stable Heather Avendano MD Oct 21, 2016 10:14
[2016-10-21] MEDS ORDERED: SOD PHOSPHATE/SOD BIPHOSPHATE (ADULT) ENEMA 133ML RECTAL ONE (10:15)
[2016-10-21] MEDS ORDERED: MAGNESIUM CITRATE SOLN 300 ML BTL PO ONE (11:15)
== END 2016-10-21 12:05 | disposition home or self-care (01) ==
LOC: NEPC 08:59
DX: K59.03 Drug induced constipation (principal); T43.95XA Adverse effect of unspecified psychotropic drug, initial encounter
CPT/HCPCS: 99283

== ENCOUNTER 2016-11-09 16:19 | Emergency (ER) | payer OTHER ==
[~2016-11-09] VITALS: Ht 152.4 cm; Wt 38.5 kg
[2016-11-09 16:21] VITALS: BP 147/103; PULSE 128; RESP 20; TEMP 97.7; O2SAT 94
--- NOTE | 2016-11-09 18:16 | PD ---
Physical Exam Time Seen by Provider: 18:15 Narrative 61 y/o female here with complaints of abdominal pain, constipation for the past few days. Vital signs reviewed. Seen at triage desk. Awaiting bed placement. Data Data Last Documented VS Vital Signs Date Time Temp Pulse Resp B/P Pulse Ox O2 Delivery O2 Flow Rate FiO2 11/09/16 16:21 97.7 128 20 147/103 94 Room Air [facility] Medical Record Reviewed: Yes Supervised Visit with VANESSA: Dayne Eddy November 09, 2016 18:16
[2016-11-09 21:47] VITALS: BP 114/72; PULSE 101; RESP 18; O2SAT 98
--- NOTE | 2016-11-09 21:49 | PD ---
HPI . Constipation Chief Complaint: Abdominal Pain Time Seen by Provider: 21:43 Travel History International Travel<30 days: No Contact w/Intl Traveler<30days: No Traveled to known affect area: No History of Present Illness HPI Patient presents with a chief complaint of constipation. She states that she has not had a bowel movement since she was last seen here. She was here on October 21 and had a manual disimpaction followed by magnesium citrate. She states that she had good results with that but has not had a good bowel movement since. She states that she has tried Ex-Lax, Dulcolax and Colace at home she has not tried magnesium citrate at home. Patient reports crampy abdominal pain which she rates as a 4/10. Patient reports no associated emesis. She is eating. She denies fever. She denies urinary tract symptoms. PFSH Past Medical History Anxiety: Yes (panic attacks) Depression: Yes Heart Rhythm Problems: No Cancer: No Cardiac Catheterization: No Cardiovascular Problems: Yes (HTN) High Cholesterol: No Congestive Heart Failure: No Diminished Hearing: No Diverticulitis: Yes Endocrine: No Gastrointestinal Disorders: Yes (IRRITABLE BOWEL SYNDROME, ) Genitourinary: No Hiatal Hernia: Yes Heparin Induced Thrombocytopen: No Hypertension: Yes Immune Disorder: No Implanted Vascular Access Dvce: No Musculoskeletal: No Neurologic: No Psychiatric: Yes Respiratory: No Immunizations Current: Yes Ulcer: Yes Tetanus Vaccination: Unknown Influenza Vaccination: Yes Menopausal: Yes : 1 Para: 1 Miscarriage: 0 : 0 Past Surgical History Abdominal Surgery: Yes (c section) Section: Yes Coronary Artery Bypass Graft: No Hysterectomy: No Tonsillectomy: Yes Other Surgery: Yes Family History Family Hypercholesterolemia: Yes Social History Alcohol Use: No Tobacco Use: No Substance Use: No (Denies) Allergies-Medications (Allergen,Severity, Reaction): Coded Allergies: Cipro (Verified Allergy, Severe, Nausea/Vomiting, 11/09/16) Vicodin (Verified Allergy, Severe, VOMITING, 11/09/16) Vistaril (Verified Adverse Reaction, Mild, Lethargy, 11/09/16) Reported Meds & Prescriptions Reported Meds & Active Scripts Active Reported Trazodone (Trazodone HCl) 50 Mg Tab 50 Mg PO HS Olanzapine 5 Mg Tab 5 Mg PO HS Buspirone (Buspirone HCl) 5 Mg Tab 5 Mg PO BID Amlodipine (Amlodipine Besylate) 5 Mg Tab 5 Mg PO DAILY Review of Systems Except as stated in HPI: all other systems reviewed are Neg General / Constitutional: No: Fever, Chills Cardiovascular: No: Chest Pain or Discomfort Respiratory: No: Shortness of Breath Gastrointestinal: Positive: Abdominal Pain, Constipation, No: Nausea, Vomiting , Diarrhea, Loss of Appetite Genitourinary: No: Urgency, Frequency, Dysuria Physical Exam Narrative GENERAL: Thin woman who is in no acute distress. SKIN: Warm and dry. HEAD: Atraumatic. Normocephalic. EYES: Pupils equal and round. Extraocular movements are intact. ENT: No nasal bleeding or discharge. Mucous membranes pink and moist. NECK: Trachea midline. Neck is supple. CARDIOVASCULAR: Regular rate and rhythm. Heart sounds are normal. RESPIRATORY: No accessory muscle use. Lungs are clear with full air movement throughout. GASTROINTESTINAL: Abdomen soft, non-tender, nondistended. Bowel sounds are normal. MUSCULOSKELETAL: No obvious deformities. No edema. NEUROLOGICAL: Awake and alert. No obvious cranial nerve deficits. Motor grossly within normal limits. Normal speech. PSYCHIATRIC: Very flat affect. Data Data Last Documented VS Vital Signs Date Time Temp Pulse Resp B/P Pulse Ox O2 Delivery O2 Flow Rate FiO2 11/09/16 21:47 101 18 114/72 98 Room Air 11/09/16 16:21 97.7 Orders Magnesium Citrate Liq (Citroma Liq) (11/09/16 22:00) [facility] Medical Decision Making Medical Screen Exam Complete: Yes Emergency Medical Condition: Yes Medical Record Reviewed: Yes (patient has a history of chronic constipation. She was last seen here on 10/21 for same.) Differential Diagnosis Differential diagnosis of abdominal pain includes but is not limited to gastritis, pancreatitis, hepatitis, gastroenteritis, gallbladder disease, constipation, urinary retention, UTI, peptic ulcer disease, diverticulitis or appendicitis Narrative Course Patient presents with abdominal pain related to constipation. She has a benign abdominal exam. She does not have any symptoms concerning for bowel obstruction. She will be given a bottle of magnesium citrate and discharged home. Diagnosis Primary Impression: Abdominal colic Additional Impression: Constipation Qualified Code: K59.00 - Constipation, unspecified constipation type Patient Instructions: Constipation (DC), General Instructions Disposition: DISCHARGE HOME Condition: Stable Heather Avendano MD November 09, 2016 21:49
[2016-11-09] MEDS ORDERED: MAGNESIUM CITRATE SOLN 300 ML BTL PO ONE (22:00)
== END 2016-11-09 22:30 | disposition home or self-care (01) ==
LOC: NEPC 16:19
DX: R10.84 Generalized abdominal pain (principal); K59.00 Constipation, unspecified; I10 Essential (primary) hypertension; K58.9 Irritable bowel syndrome, unspecified
CPT/HCPCS: 99283

== ENCOUNTER 2017-01-03 16:13 | Emergency (ER) | payer OTHER ==
[~2017-01-03] VITALS: Ht 165.1 cm; Wt 50.0 kg
[2017-01-03 16:38] VITALS: BP 134/71; PULSE 72; RESP 18; TEMP 97.8; O2SAT 97
[2017-01-03] MEDS ORDERED: SODIUM CHLOR 0.9% 1000 ML INJ 1,000 ML IV ONE (16:42)
[2017-01-03] MEDS ORDERED: SODIUM CHLORIDE 0.9% FLUSH 10 ML FLUSH IVF PRN (16:45)
--- NOTE | 2017-01-03 16:47 | PD ---
HPI Chief Complaint: GI Complaint Time Seen by Provider: 16:43 Travel History International Travel<30 days: No Contact w/Intl Traveler<30days: No Traveled to known affect area: No History of Present Illness HPI 61-year-old female presents to the emergency department via EMS for evaluation of generalized weakness, generalized body aches that has been ongoing for approximately 2 days. Patient states she was dizzy yesterday, but states this is resolved. She reports a minor headache yesterday that was relieved with Tylenol. No current dizziness or headache. Patient denies any chest pain or shortness of breath. She states she is nauseated, but denies any vomiting. No abdominal pain. She does report chronic constipation. She states she has not had a bowel movement in approximately 2-3 days. Her last bowel movement was normal for her. Patient was given Zofran 4 mg via EMS. Patient does report a history of psychiatric illness, hypertension. She is currently on Zyprexa, BuSpar, amlodipine. Patient denies any fevers or chills. PFSH Past Medical History Anxiety: Yes (panic attacks) Depression: Yes Heart Rhythm Problems: No Cancer: No Cardiac Catheterization: No Cardiovascular Problems: Yes (HTN) High Cholesterol: No Congestive Heart Failure: No Diminished Hearing: No Diverticulitis: Yes Endocrine: No Gastrointestinal Disorders: Yes (IRRITABLE BOWEL SYNDROME, ) Genitourinary: No Hiatal Hernia: Yes Heparin Induced Thrombocytopen: No Hypertension: Yes Immune Disorder: No Implanted Vascular Access Dvce: No Musculoskeletal: No Neurologic: No Psychiatric: Yes Respiratory: No Immunizations Current: Yes Ulcer: Yes Menopausal: Yes : 1 Para: 1 Miscarriage: 0 : 0 Past Surgical History Abdominal Surgery: Yes (c section) Section: Yes Coronary Artery Bypass Graft: No Hysterectomy: No Tonsillectomy: Yes Other Surgery: Yes Family History Family Hypercholesterolemia: Yes Social History Alcohol Use: No Tobacco Use: No Substance Use: No (Denies) Allergies-Medications (Allergen,Severity, Reaction): Coded Allergies: Cipro (Verified Allergy, Severe, Nausea/Vomiting, 11/09/16) Vicodin (Verified Allergy, Severe, VOMITING, 11/09/16) Vistaril (Verified Adverse Reaction, Mild, Lethargy, 11/09/16) Reported Meds & Prescriptions Reported Meds & Active Scripts Active Reported Olanzapine 5 Mg Tab 5 Mg PO HS Buspirone (Buspirone HCl) 5 Mg Tab 5 Mg PO BID Amlodipine (Amlodipine Besylate) 5 Mg Tab 5 Mg PO DAILY Review of Systems Except as stated in HPI: all other systems reviewed are Neg Physical Exam Narrative GENERAL: Well-nourished, well-developed female patient, afebrile. SKIN: Focused skin assessment warm/dry. HEAD: Normocephalic. Atraumatic. EYES: No scleral icterus. No injection or drainage. NECK: Supple, trachea midline. No JVD or lymphadenopathy. CARDIOVASCULAR: Regular rate and rhythm without murmurs, gallops, or rubs. RESPIRATORY: Breath sounds equal bilaterally. No accessory muscle use. Lungs sounds are clear to auscultation. GASTROINTESTINAL: Abdomen soft, non-tender, nondistended. MUSCULOSKELETAL: No cyanosis, or edema. Bilateral upper lotion with strength 5/ 5. All extremities are neurovascularly intact. BACK: Nontender without obvious deformity. No CVA tenderness. NEUROLOGICAL: Awake and alert. Cranial nerves II through XII intact. Motor and sensory grossly within normal limits. Five out of 5 muscle strength in all muscle groups. Normal speech. Data Data Last Documented VS Vital Signs Date Time Temp Pulse Resp B/P Pulse Ox O2 Delivery O2 Flow Rate FiO2 01/03/17 19:17 87 20 131/72 98 Room Air 01/03/17 16:38 97.8 Orders Electrocardiogram (01/03/17 16:42) Complete Blood Count With Diff (01/03/17 16:42) Comprehensive Metabolic Panel (01/03/17 16:42) Magnesium (Mg) (01/03/17 16:42) Ckmb (Isoenzyme) Profile (01/03/17 16:42) Troponin I (01/03/17 16:42) Urinalysis - C+S If Indicated (01/03/17 16:42) Ecg Monitoring (01/03/17 16:42) Iv Access Insert/Monitor (01/03/17 16:42) Oximetry (01/03/17 16:42) Sodium Chloride 0.9% Flush (Ns Flush) (01/03/17 16:45) Sodium Chlor 0.9% 1000 Ml Inj (Ns 1000 M (01/03/17 16:42) Ct Abd/Pel W/O Iv Contrast (01/03/17 ) Labs Laboratory Tests Test 01/03/17 01/03/17 16:55 17:15 White Blood Count 8.4 TH/MM3 Red Blood Count 4.20 MIL/MM3 Hemoglobin 11.3 GM/DL Hematocrit 34.5 % Mean Corpuscular Volume 82.1 FL Mean Corpuscular Hemoglobin 26.9 PG Mean Corpuscular Hemoglobin 32.8 % Concent Red Cell Distribution Width 16.0 % Platelet Count 264 TH/MM3 Mean Platelet Volume 8.4 FL Neutrophils (%) (Auto) 68.4 % Lymphocytes (%) (Auto) 21.6 % Monocytes (%) (Auto) 8.5 % Eosinophils (%) (Auto) 0.8 % Basophils (%) (Auto) 0.7 % Neutrophils # (Auto) 5.7 TH/MM3 Lymphocytes # (Auto) 1.8 TH/MM3 Monocytes # (Auto) 0.7 TH/MM3 Eosinophils # (Auto) 0.1 TH/MM3 Basophils # (Auto) 0.1 TH/MM3 CBC Comment DIFF FINAL Differential Comment Sodium Level 143 MEQ/L Potassium Level 3.7 MEQ/L Chloride Level 106 MEQ/L Carbon Dioxide Level 28.5 MEQ/L Anion Gap 9 MEQ/L Blood Urea Nitrogen 10 MG/DL Creatinine 0.58 MG/DL Estimat Glomerular Filtration 106 ML/MIN Rate Random Glucose 74 MG/DL Calcium Level 8.8 MG/DL Magnesium Level 2.2 MG/DL Total Bilirubin 0.4 MG/DL Aspartate Amino Transf 7 U/L (AST/SGOT) Alanine Aminotransferase 9 U/L (ALT/SGPT) Alkaline Phosphatase 71 U/L Total Creatine Kinase 25 U/L Troponin I LESS THAN 0.02 NG/ML Total Protein 7.1 GM/DL Albumin 3.2 GM/DL Urine Color YELLOW Urine Turbidity CLEAR Urine pH 7.5 Urine Specific [place] 1.011 Urine Protein 30 mg/dL Urine Glucose (UA) NEG mg/dL Urine Ketones NEG mg/dL Urine Occult Blood MOD Urine Nitrite NEG Urine Bilirubin NEG Urine Urobilinogen LESS THAN 2.0 MG/DL Urine Leukocyte Esterase TRACE Urine RBC 92 /hpf Urine WBC 5 /hpf Urine Squamous Epithelial <1 /hpf Cells Urine Amorphous Sediment RARE Urine Bacteria RARE /hpf Urine Hyaline Casts 3 /lpf Urine Mucus MOD /lpf Microscopic Urinalysis Comment CULT NOT INDICATED MDM Medical Decision Making Medical Screen Exam Complete: Yes Emergency Medical Condition: Yes Medical Record Reviewed: Yes Interpretation(s) CT abdomen/pelvis - CONCLUSION: 1. Focal wall thickening involving the mid sigmoid colon raising the possibility of colon carcinoma. A focal colitis and diverticulitis are also in the differential. Colonoscopy would be helpful for further evaluation of this finding. 2. Moderate hydronephrosis on the left with 12 x 8 mm calcified left renal calculus noted. 2. Multiple calcified nonobstructing left renal calculi. 4. 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 5. Stable hepatic, bilateral renal and splenic cysts. 6. Degenerative changes and scoliosis of the lumbar spine. 7. Stable splenomegaly and rim-calcified splenic mass. Differential Diagnosis Viral illness versus Electrolyte abnormality versus dehydration versus ACS versus chronic constipation Narrative Course 61-year-old female presents to the emergency department for evaluation of generalized weakness and body aches have been ongoing for 2 days. Patient does appear well and exam. Physical exam is reassuring. EKG, CBC, CMP, magnesium, CK, troponin, UA are ordered and pending. Patient is given normal saline 1 L IV bolus. EKG shows sinus rhythm, heart rate 67, no acute ST changes. CBC shows no acute abnormality. CMP shows no acute abnormality. Magnesium is 2.2. CK is 25. Troponin is less than 0.02. UA shows moderate occult blood, 92 rbc's, trace leukocyte esterase. Due to hematuria, CT abdomen/pelvis without contrast is ordered and pending. CT abdomen/pelvis shows focal wall thickening involving the mid sigmoid colon raising the possibility of colon carcinoma. A focal colitis and diverticulitis are also in the differential. 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 Patient has no CVA tenderness and no abdominal pain to palpation. Patient denies any pain. She is wanting to go home. I discussed with the patient the need to follow up with gastroenterology and urology. She states that she has a chief of safety and protection that she will see. Patient is given a copy of her radiology results. The patient was discharged in stable condition with instructions, including return instructions and follow up instructions. Diagnosis Primary Impression: Nephrolithiasis Additional Impression: Mural thickening of sigmoid colon Referrals: Anatoly Avila MD call for appointment [employer] call for appointment Patient Instructions: General Instructions, Kidney Stones (ED) Additional Instructions: Follow up with your chief of safety and protection. Follow up with urology. Dr. Avila is the urologist certified personal finance counselor today. Return to the emergency department for any acute, worsening of symptoms. Med/Other Pt SpecificInfo: No Change to Meds Disposition: 01 DISCHARGE HOME Condition: Stable Jayden,Annamaria MCCLELLAN Jan 03, 2017 16:47
[2017-01-03 17:16] LABS: AUTOMATED NEUTROPHIL # 5.7 TH/MM3 (1.8-7.7); BASOPHIL # 0.1 TH/MM3 (0-0.2); BASOPHIL % 0.7 % (0.0-2.0); EOSINOPHIL # 0.1 TH/MM3 (0-0.4); EOSINOPHIL % 0.8 % (0.0-4.0); HEMATOCRIT 34.5 % (35.0-46.0); HEMO FLAGS DIFF FINAL; LYMPH % 21.6 % (9.0-44.0); LYMPHOCYTE # 1.8 TH/MM3 (1.0-4.8); MEAN CELL VOLUME 82.1 FL (80.0-100.0); MEAN CORPUSCULAR HEMOGLOBIN 26.9 PG (27.0-34.0); MEAN CORPUSCULAR HGB CONC 32.8 % (32.0-36.0); MONO % 8.5 % (0.0-8.0); NEUT % 68.4 % (16.0-70.0); PLATELET COUNT 264 TH/MM3 (150-450); WHITE BLOOD COUNT 8.4 TH/MM3 (4.0-11.0)
[2017-01-03 17:42] LABS: ALT (GPT) 9 U/L (10-53); ANION GAP 9 MEQ/L (5-15); AST (GOT) 7 U/L (15-37); BICARBONATE 28.5 MEQ/L (21.0-32.0); BLOOD UREA NITROGEN 10 MG/DL (7-18); CHLORIDE 106 MEQ/L (98-107); GLOMERULAR FILTRATION RATE 106 ML/MIN (>89); MAGNESIUM 2.2 MG/DL (1.5-2.5); POTASSIUM 3.7 MEQ/L (3.5-5.1); SODIUM (NA) 143 MEQ/L (136-145)
[2017-01-03 17:46] LABS: ALKALINE PHOSPHATASE 71 U/L (45-117); TOTAL BILIRUBIN ADULT 0.4 MG/DL (0.2-1.0)
[2017-01-03 18:21] LABS: CREATINE KINASE 25 U/L (26-192)
[2017-01-03 18:33] LABS: BACTERIA, URINE RARE /hpf; BLOOD, URINE MOD (NEG); COMMENT (UR) CULT NOT INDICATED; CULTURE IF INDICATED CULT NOT INDICATED; GLUCOSE,URINE NEG (NEG); HYALINE CAST, URINE 3 /lpf (RARE); KETONE, URINE NEG (NEG); MUCUS URINE MOD /lpf (OCC); NITRITE,URINE NEG (NEG); PH, URINE 7.5 (5.0-8.5); SQUAMOUS EPITHELIAL CELL URINE <1 /hpf (0-5); URINE COLOR YELLOW (YELLW/STRAW)
[2017-01-03 19:17] VITALS: BP 131/72; PULSE 87; RESP 20; O2SAT 98
--- NOTE | 2017-01-03 20:00 | RADRPT ---
EXAM DATE/TIME: 01/03/2017 19:05 [facility] COMPARISON: CT ABDOMEN & PELVIS W/O CONTRAST, October 28, 2015, 22:22. INDICATIONS : Weakness, nausea, vomiting and constipation for two days. ORAL CONTRAST: No oral contrast ingested. RADIATION DOSE: 13.28 CTDIvol (mGy) MEDICAL HISTORY : Hypertension. Cardiovascular disease. SURGICAL HISTORY : None. ENCOUNTER: Initial ACUITY: 1 day PAIN SCALE: 0/10 LOCATION: Bilateral abdomen TECHNIQUE: Volumetric scanning of the abdomen and pelvis was performed. Using automated exposure control and ad justment of the mA and/or kV according to patient size, radiation dose was kept as low as reasonably achievable to obtain optimal diagnostic quality images. DICOM format image data is available electro nically for review and comparison. FINDINGS: There is evidence of moderate pelvocaliectasis on the left. There is a 12 x 8 mm calcified calculus within the left renal pelvis. Multiple tiny calcified nonobstructing left renal calculi are also not ed. There are scattered stable hepatic and bilateral renal cysts. There is focal wall thickening in the expected region of the mid sigmoid colon raising the possibility of colon carcinoma. Colonoscop y is recommended for further evaluation of this area of focal thickening. Focal colitis and divertic ulitis are also in the differential. 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 The appendix is melinda l. There is a stable rim-calcified splenic lesion which is unchanged compared to the previous examin ation. The spleen remains enlarged. Splenic cysts are also noted. The abdominal aorta is calcified but is not aneurysmally dilated. Degenerative changes and scoliosis of the lumbar spine are noted. The urinary bladder is nondistended. CONCLUSION: 1. Focal wall thickening involving the mid sigmoid colon raising the possibility of colon carcinoma. A focal colitis and diverticulitis are also in the differential. Colonoscopy would be helpful for further evaluation of this finding. 2. Moderate hydronephrosis on the left with 12 x 8 mm calcified left renal calculus noted. 2. Multiple calcified nonobstructing left renal calculi. 4. Right lateral abdominal wall hernia containing several loops of small bowel consistent with proba ble spigelian hernia. 5. Stable hepatic, bilateral renal and splenic cysts. 6. Degenerative changes and scoliosis of the lumbar spine. 7. Stable splenomegaly and rim-calcified splenic mass. Elton Chaidez MD on January 03, 2017 at 19:34 Board Certified Radiologist. This report was verified electronically.
--- NOTE | 2017-01-05 08:34 | EKG ---
Date Performed: 01/03/2017 Time Performed: 17:00:05 PTAGE: 61 years EKG: Sinus rhythm NORMAL ECG PREVIOUS TRACING : 08/30/2016 12.23 DOCTOR: Houston Mujica Interpretating Date/Time 01/05/2017 08:33:43
== END 2017-01-03 20:29 | disposition home or self-care (01) ==
LOC: NEPE 16:13
DX: N20.0 Calculus of kidney (principal); I10 Essential (primary) hypertension; Z79.899 Other long term (current) drug therapy
CPT/HCPCS: 74176; 80053; 81001; 82550; 83735; 84484; 85025; 93005; 96360; 99285; J7030

== ENCOUNTER 2017-01-14 16:00 | Emergency (ER) | payer OTHER ==
[~2017-01-14] VITALS: Ht 152.4 cm; Wt 42.0 kg
[~2017-01-14 16:00] MED LIST changes: -TRAZ50TA12 PO
[2017-01-14 16:02] VITALS: BP 138/88; PULSE 111; RESP 20; TEMP 98.4; O2SAT 98
[2017-01-14 18:11] VITALS: BP 125/75; PULSE 80; RESP 24; O2SAT 95
[2017-01-14] MEDS ORDERED: diphenhydrAMINE HCL 50 MG/ML VIAL IV PUSH ONE (18:15)
[2017-01-14] MEDS ORDERED: PROCHLORPERAZINE INJ 10 MG/2 ML VIAL IV PUSH ONE (18:15)
--- NOTE | 2017-01-14 18:40 | PD ---
HPI . Headache and abdominal pain Chief Complaint: Anxiety Time Seen by Provider: 17:54 Travel History International Travel<30 days: No Contact w/Intl Traveler<30days: No Traveled to known affect area: No History of Present Illness HPI This patient presents to us with the chief complaint of headache and upper abdominal pain. Her caregiver also reports intermittently elevated blood pressure. Patient states that her headache is throbbing and bitemporal and she rates it as 8/10. No exacerbating or relieving factors. No blurred vision. She describes crampy upper abdominal pain with no associated nausea, vomiting or diarrhea. No fever. No urinary track symptoms. PFSH Past Medical History Anxiety: Yes (panic attacks) Depression: Yes Heart Rhythm Problems: No Cancer: No Cardiac Catheterization: No Cardiovascular Problems: Yes High Cholesterol: No Congestive Heart Failure: No Diminished Hearing: No Diverticulitis: Yes Endocrine: No Gastrointestinal Disorders: Yes (IRRITABLE BOWEL SYNDROME, ) Genitourinary: No Hiatal Hernia: Yes Heparin Induced Thrombocytopen: No Hypertension: Yes Immune Disorder: No Implanted Vascular Access Dvce: No Musculoskeletal: No Neurologic: No Psychiatric: Yes Respiratory: No Immunizations Current: Yes Ulcer: Yes Menopausal: Yes : 1 Para: 1 Miscarriage: 0 : 0 Past Surgical History Abdominal Surgery: Yes (c section) Section: Yes Coronary Artery Bypass Graft: No Hysterectomy: No Tonsillectomy: Yes Other Surgery: Yes Family History Family Hypercholesterolemia: Yes Social History Alcohol Use: No Tobacco Use: No Substance Use: No (Denies) Allergies-Medications (Allergen,Severity, Reaction): Coded Allergies: Cipro (Verified Allergy, Severe, Nausea/Vomiting, 01/14/17) Vicodin (Verified Allergy, Severe, VOMITING, 01/14/17) Vistaril (Verified Adverse Reaction, Mild, Lethargy, 01/14/17) Reported Meds & Prescriptions Reported Meds & Active Scripts Active Reported Olanzapine 5 Mg Tab 5 Mg PO HS Buspirone (Buspirone HCl) 5 Mg Tab 5 Mg PO BID Amlodipine (Amlodipine Besylate) 5 Mg Tab 5 Mg PO DAILY Review of Systems Except as stated in HPI: all other systems reviewed are Neg General / Constitutional: No: Fever, Chills Eyes: No: Blurred Vision HENT: Positive: Headaches Cardiovascular: No: Chest Pain or Discomfort Respiratory: No: Shortness of Breath Gastrointestinal: Positive: Abdominal Pain, No: Nausea, Vomiting, Diarrhea Genitourinary: No: Urgency, Frequency, Dysuria Physical Exam Narrative GENERAL: This patient looks her usual self. She is in no acute distress. SKIN: Warm and dry. HEAD: Atraumatic. Normocephalic. Bitemporal tenderness. EYES: Pupils equal and round. Extraocular movements are intact. ENT: No nasal bleeding or discharge. Mucous membranes pink and moist. NECK: Trachea midline. Neck is supple. No cervical lymphadenopathy. CARDIOVASCULAR: Regular rate and rhythm. Heart sounds are normal. RESPIRATORY: No accessory muscle use. Lungs are clear with good air movement throughout. GASTROINTESTINAL: Abdomen soft, non-tender, nondistended. MUSCULOSKELETAL: No obvious deformities. No edema. NEUROLOGICAL: Awake and alert. No obvious cranial nerve deficits. Motor grossly within normal limits. Normal speech. PSYCHIATRIC: Appropriate mood and affect; insight and judgment normal. Data Data Last Documented VS Vital Signs Date Time Temp Pulse Resp B/P Pulse Ox O2 Delivery O2 Flow Rate FiO2 01/14/17 18:11 80 24 125/75 95 Room Air 01/14/17 16:02 98.4 Orders Prochlorperazine Inj (Compazine Inj) (01/14/17 18:15) Diphenhydramine Inj (Benadryl Inj) (01/14/17 18:15) MDM Medical Decision Making Medical Screen Exam Complete: Yes Emergency Medical Condition: Yes Medical Record Reviewed: Yes (this patient presents here frequently with abdominal pain often related to constipation. She also has a strong psychiatric history. She was most recently seen here just a couple days ago and had a CBC, CMP, magnesium, CK, troponin, UA and CT of her abdomen and pelvis. The only pertinent findings were some blood in her urine and several nonacute findings on her CT.) Interpretation(s) EKG shows a sinus rhythm with no acute ischemic changes. Differential Diagnosis Differential diagnosis of headache includes but is not limited to migraine, muscle contraction headache, brain tumor, brain bleed Differential diagnosis of abdominal pain Narrative Course Patient presents with several complaints. Her complaints are headache and abdominal pain and her caretakers complaint was occasional elevated blood pressure. The patient has a benign physical exam. She has had a very recent negative In the emergency department. I will treat her with Compazine and Benadryl. I anticipate discharge shortly. H/A improving. The history, exam, diagnostic testing, and current condition do not suggest any significant pathology to warrant further testing, continued ED treatment, admission, or surgical evaluation at this point. The patient's condition is stable and appropriate for discharge. Diagnosis Primary Impression: Headache Qualified Code: R51 - Acute nonintractable headache, unspecified headache type Additional Impression: Abdominal colic Patient Instructions: Abdominal Pain (ED), Acute Headache (DC), General Instructions Condition: Stable Heather Avendano MD Jan 14, 2017 18:40
--- NOTE | 2017-01-15 13:32 | EKG ---
Date Performed: 01/14/2017 Time Performed: 18:06:23 PTAGE: 61 years EKG: Sinus rhythm WITH SINUS ARRHYTHMIA BORDERLINE ECG PREVIOUS TRACING : 01/03/2017 17.00 No changed compared to the prior study. DOCTOR: Brent Mckeon Interpretating Date/Time 01/15/2017 13:29:57
== END 2017-01-14 19:24 | disposition home or self-care (01) ==
LOC: NEPD 16:00
DX: R51 Headache (principal); K52.9 Noninfective gastroenteritis and colitis, unspecified; K58.9 Irritable bowel syndrome, unspecified; I10 Essential (primary) hypertension
CPT/HCPCS: 93005; 96374; 96375; 99284; J0780; J1200

== ENCOUNTER 2017-03-27 20:26 | Emergency (ER) | payer OTHER ==
[~2017-03-27] VITALS: Ht 149.9 cm; Wt 47.0 kg
[2017-03-27 20:38] VITALS: BP 161/77; PULSE 89; RESP 16; TEMP 98.3; O2SAT 97
[2017-03-27] MEDS ORDERED: BUSP10TA PO (21:22)
--- NOTE | 2017-03-27 21:38 | PD ---
HPI Chief Complaint: Abdominal Pain Time Seen by Provider: 21:25 Travel History International Travel<30 days: No Contact w/Intl Traveler<30days: No Traveled to known affect area: No History of Present Illness HPI This is a 61-year-old female who presents to the emergency department with a headache and abdominal pain that's been going on for several hours. She describes the headache as in the front of her head, constant and throbbing, gradual in onset. She describes the abdominal pain is in the center of her abdomen, mild. She was concerned because 3 days ago she had her blood pressure checked and it was 149/100. She never got it rechecked and she thought maybe her blood pressure is high. She takes amlodipine 5 mg daily for her blood pressure. She follows with Dr. Estrella. She denies any fevers, chills or vomiting. PFSH Past Medical History Anxiety: Yes (panic attacks) Depression: Yes Heart Rhythm Problems: No Cancer: No Cardiac Catheterization: No Cardiovascular Problems: Yes High Cholesterol: No Congestive Heart Failure: No Diabetes: No Diminished Hearing: No Diverticulitis: Yes Endocrine: No Gastrointestinal Disorders: Yes (IRRITABLE BOWEL SYNDROME, ) Genitourinary: No Hiatal Hernia: Yes Heparin Induced Thrombocytopen: No Hypertension: Yes Immune Disorder: No Implanted Vascular Access Dvce: No Musculoskeletal: No Neurologic: No Psychiatric: Yes Respiratory: No Immunizations Current: Yes Ulcer: Yes Tetanus Vaccination: Never Vaccinated Influenza Vaccination: Yes Menopausal: Yes : 1 Para: 1 Miscarriage: 0 : 0 Past Surgical History Abdominal Surgery: Yes (c section) Section: Yes Coronary Artery Bypass Graft: No Hysterectomy: No Tonsillectomy: Yes Other Surgery: Yes Family History Family Hypercholesterolemia: Yes Social History Alcohol Use: No Tobacco Use: No Substance Use: No (Denies) Allergies-Medications (Allergen,Severity, Reaction): Coded Allergies: acetaminophen (Unverified Allergy, Severe, VOMITING, 03/27/17) ciprofloxacin (Unverified Allergy, Severe, Nausea/Vomiting, 03/27/17) hydrocodone (Unverified Allergy, Severe, VOMITING, 03/27/17) hydroxyzine (Unverified Adverse Reaction, Mild, Lethargy, 03/27/17) Reported Meds & Prescriptions Reported Meds & Active Scripts Active Reported Buspirone (Buspirone HCl) 10 Mg Tab 10 Mg PO DAILY Olanzapine 5 Mg Tab 5 Mg PO HS Amlodipine (Amlodipine Besylate) 5 Mg Tab 5 Mg PO DAILY Review of Systems Except as stated in HPI: all other systems reviewed are Neg Physical Exam Narrative GENERAL:Well appearing, no acute distress SKIN: Focused skin assessment warm and dry. HEAD: Atraumatic. Normocephalic. EYES: Pupils equal and round. No injection or drainage. ENT: Moist mucous membranes NECK: Trachea midline. CARDIOVASCULAR: Regular rate and rhythm. No murmur appreciated. RESPIRATORY: Clear to auscultation. Breath sounds equal bilaterally. GASTROINTESTINAL: Abdomen soft mildly tender to palpation in the epigastrium with no rebound or guarding. MUSCULOSKELETAL: No obvious deformities. NEUROLOGICAL: Awake and alert. No obvious cranial nerve deficits. Moving all extremities. PSYCHIATRIC: Slow to answer questions, bizarre affect Data Data Last Documented VS Vital Signs Date Time Temp Pulse Resp B/P (MAP) Pulse Ox O2 Delivery O2 Flow Rate FiO2 03/27/17 20:38 98.3 89 16 161/77 (105) 97 Room Air Orders Orders Complete Blood Count With Diff (03/27/17 21:34) Comprehensive Metabolic Panel (03/27/17 21:35) Lipase (03/27/17 21:35) Labs Laboratory Tests Test 03/27/17 21:44 White Blood Count 9.3 TH/MM3 Red Blood Count 4.31 MIL/MM3 Hemoglobin 11.7 GM/DL Hematocrit 35.5 % Mean Corpuscular Volume 82.2 FL Mean Corpuscular Hemoglobin 27.0 PG Mean Corpuscular Hemoglobin Concent 32.9 % Red Cell Distribution Width 15.3 % Platelet Count 262 TH/MM3 Mean Platelet Volume 7.8 FL Neutrophils (%) (Auto) 65.0 % Lymphocytes (%) (Auto) 22.1 % Monocytes (%) (Auto) 9.8 % Eosinophils (%) (Auto) 2.3 % Basophils (%) (Auto) 0.8 % Neutrophils # (Auto) 6.0 TH/MM3 Lymphocytes # (Auto) 2.0 TH/MM3 Monocytes # (Auto) 0.9 TH/MM3 Eosinophils # (Auto) 0.2 TH/MM3 Basophils # (Auto) 0.1 TH/MM3 CBC Comment DIFF FINAL Differential Comment Blood Urea Nitrogen 11 MG/DL Creatinine 0.69 MG/DL Random Glucose 96 MG/DL Total Protein 7.1 GM/DL Albumin 3.2 GM/DL Calcium Level 9.3 MG/DL Alkaline Phosphatase 83 U/L Aspartate Amino Transf (AST/SGOT) 8 U/L Alanine Aminotransferase (ALT/SGPT) 16 U/L Total Bilirubin 0.2 MG/DL Sodium Level 141 MEQ/L Potassium Level 3.6 MEQ/L Chloride Level 104 MEQ/L Carbon Dioxide Level 28.9 MEQ/L Anion Gap 8 MEQ/L Estimat Glomerular Filtration Rate 86 ML/MIN Lipase 72 U/L MDM Medical Decision Making Medical Screen Exam Complete: Yes Emergency Medical Condition: Yes Interpretation(s) No leukocytosis Electrolytes are reassuring Differential Diagnosis Hypertension, pancreatitis, gastritis, GERD Narrative Course This is 61-year-old female who presents to the emergency department with multiple nonspecific complaints including headache, abdominal pain and high blood pressure. Her blood pressure was high on arrival but improved on recheck to 140/80. She looks very well. She's been here multiple times in the past with similar complaints. She appears to have some cognitive delay as she has a strange affect on exam and is slow to answer questions. Her labs are all reassuring. I don't think this reflects a medical emergency. I think she can safely follow up with her primary care physician. I advised her that if her blood pressure is been running high continuously she could increase her amlodipine dose to 10 mg per day. Diagnosis Primary Impression: Hypertension Qualified Codes: I10 - Essential (primary) hypertension Patient Instructions: General Instructions Additional Instructions: If you develop severe chest pain, shortness of breath, sweating, lightheadedness , dizziness or difficulty breathing return to the emergency department immediately. Followup with your primary care physician in 2-3 days if your symptoms are not resolved. Med/Other Pt SpecificInfo: Existing Med Changed (increase amlodipine to 10 mg daily and discuss this change with primary care physician) Disposition: 01 DISCHARGE HOME Condition: Stable Bonnie Fontenot MD Mar 27, 2017 21:38
[2017-03-27 21:54] LABS: BASOPHIL # 0.1 TH/MM3 (0-0.2); BASOPHIL % 0.8 % (0.0-2.0); EOSINOPHIL # 0.2 TH/MM3 (0-0.4); EOSINOPHIL % 2.3 % (0.0-4.0); HEMATOCRIT 35.5 % (35.0-46.0); HEMO FLAGS DIFF FINAL; LYMPH % 22.1 % (9.0-44.0); MEAN CELL VOLUME 82.2 FL (80.0-100.0); MEAN CORPUSCULAR HGB CONC 32.9 % (32.0-36.0); MONO % 9.8 % (0.0-8.0); PLATELET COUNT 262 TH/MM3 (150-450); RED BLOOD COUNT 4.31 MIL/MM3 (4.00-5.30); RED CELL DISTRIBUTION WIDTH 15.3 % (11.6-17.2); WHITE BLOOD COUNT 9.3 TH/MM3 (4.0-11.0)
[2017-03-27 22:21] LABS: ANION GAP 8 MEQ/L (5-15); AST (GOT) 8 U/L (15-37); BICARBONATE 28.9 MEQ/L (21.0-32.0); BLOOD UREA NITROGEN 11 MG/DL (7-18); CHLORIDE 104 MEQ/L (98-107); GLOMERULAR FILTRATION RATE 86 ML/MIN (>89); POTASSIUM 3.6 MEQ/L (3.5-5.1); SODIUM (NA) 141 MEQ/L (136-145)
[2017-03-27 22:26] LABS: ALKALINE PHOSPHATASE 83 U/L (45-117); ALT (GPT) 16 U/L (10-53); TOTAL BILIRUBIN ADULT 0.2 MG/DL (0.2-1.0)
== END 2017-03-27 22:50 | disposition home or self-care (01) ==
LOC: NEPC 20:26
DX: I10 Essential (primary) hypertension (principal); R51 Headache; R10.9 Unspecified abdominal pain; F41.9 Anxiety disorder, unspecified; F32.9 Major depressive disorder, single episode, unspecified; K58.9 Irritable bowel syndrome, unspecified; Z79.899 Other long term (current) drug therapy; Z88.5 Allergy status to narcotic agent; Z88.8 Allergy status to other drugs, medicaments and biological substances
CPT/HCPCS: 80053; 83690; 85025; 99283

== ENCOUNTER 2017-05-06 07:15 | Emergency (ER) | payer OTHER ==
[~2017-05-06] VITALS: Ht 149.9 cm; Wt 45.0 kg
[~2017-05-06 07:15] MED LIST changes: +BUSP10TA PO; -BUSP5TAB PO
[2017-05-06 07:22] VITALS: BP 134/89; PULSE 102; RESP 15; TEMP 97.9; O2SAT 95
[2017-05-06] MEDS ORDERED: OXYC1TAB63 PO ×2 (07:31)
[2017-05-06] MEDS ORDERED: CEPH250C PO ×2 (07:31)
[2017-05-06] MEDS ORDERED: ONDANSETRON HCL 4 MG/2 ML VIAL IV PUSH ONE ×2 (07:45)
[2017-05-06] MEDS ORDERED: SODIUM CHLORID 0.9% 500 ML INJ 500 ML IV ONE ×2 (07:45)
[2017-05-06] MEDS ORDERED: ZOFR4TAB3 SL ×2 (07:47)
--- NOTE | 2017-05-06 07:47 | PD ---
HPI Chief Complaint: Dizziness Time Seen by Provider: 07:19 Travel History International Travel<30 days: No Contact w/Intl Traveler<30days: No Traveled to known affect area: No History of Present Illness HPI 61-year-old female complains of dizziness and nausea vomiting. Patient states the symptoms started this morning. Patient has history kidney stones status post bilateral stent placement 6 days ago. Patient states that she has been doing well until this morning. Patient states that she took her oxycodone this morning and ate some cereal and started having dizziness and nausea vomiting. EMS was called. Patient was brought to the ED for evaluation. Patient denies any headache. Patient denies any chest pain or shortness of breath. Patient denies abdominal pain. Patient denies any dysuria or frequency. Patient denies any fever chills. PFSH Past Medical History Anxiety: Yes (panic attacks) Depression: Yes Heart Rhythm Problems: No Cancer: No Cardiac Catheterization: No Cardiovascular Problems: Yes High Cholesterol: No Congestive Heart Failure: No Diabetes: No Diminished Hearing: No Diverticulitis: Yes Endocrine: No Gastrointestinal Disorders: Yes (IRRITABLE BOWEL SYNDROME) Genitourinary: No Hiatal Hernia: Yes Heparin Induced Thrombocytopen: No Hypertension: Yes Immune Disorder: No Implanted Vascular Access Dvce: No Kidney Stones: Yes Musculoskeletal: No Neurologic: No Psychiatric: Yes Respiratory: No Immunizations Current: Yes Ulcer: Yes Influenza Vaccination: Yes Menopausal: Yes : 1 Para: 1 Miscarriage: 0 : 0 Past Surgical History Abdominal Surgery: Yes (c section) Section: Yes Coronary Artery Bypass Graft: No Genitourinary Surgery: Yes (L kidney stent) Hysterectomy: No Tonsillectomy: Yes Other Surgery: Yes Family History Family Hypercholesterolemia: Yes Social History Alcohol Use: No Tobacco Use: No Substance Use: No Allergies-Medications (Allergen,Severity, Reaction): Coded Allergies: acetaminophen (Unverified Allergy, Severe, VOMITING, 05/06/17) ciprofloxacin (Unverified Allergy, Severe, Nausea/Vomiting, 05/06/17) hydrocodone (Unverified Allergy, Severe, VOMITING, 05/06/17) hydroxyzine (Unverified Adverse Reaction, Mild, Lethargy, 05/06/17) Reported Meds & Prescriptions Reported Meds & Active Scripts Active Reported Cephalexin 250 Mg Cap Unknown Dose PO Q8H Oxycodone-Acetaminophen 5-325 mg Tab Unknown Dose PO Q6H PRN Buspirone (Buspirone HCl) 10 Mg Tab 10 Mg PO DAILY Olanzapine 5 Mg Tab 5 Mg PO HS Amlodipine (Amlodipine Besylate) 5 Mg Tab 5 Mg PO DAILY Review of Systems General / Constitutional: No: Fever Eyes: No: Visual changes HENT: Positive: Lightheadedness, No: Headaches Cardiovascular: No: Chest Pain or Discomfort Respiratory: No: Shortness of Breath Gastrointestinal: Positive: Nausea, Vomiting, No: Abdominal Pain Genitourinary: No: Dysuria Musculoskeletal: No: Pain Skin: No Rash Neurologic: No: Weakness Psychiatric: No: Depression Endocrine: No: Polydipsia Hematologic/Lymphatic: No: Easy Bruising Physical Exam Narrative GENERAL: Well-nourished, well-developed patient. SKIN: Focused skin assessment warm/dry. HEAD: Normocephalic. EYES: No scleral icterus. No injection or drainage. NECK: Supple, trachea midline. No JVD or lymphadenopathy. CARDIOVASCULAR: Regular rate and rhythm without murmurs, gallops, or rubs. RESPIRATORY: Breath sounds equal bilaterally. No accessory muscle use. GASTROINTESTINAL: Abdomen soft, non-tender, nondistended. MUSCULOSKELETAL: No cyanosis, or edema. BACK: Nontender without obvious deformity. No CVA tenderness. Neurologic exam: Patient's awake and alert oriented 3. No obvious focal neurological deficit. Data Data Last Documented VS Vital Signs Date Time Temp Pulse Resp B/P (MAP) Pulse Ox O2 Delivery O2 Flow Rate FiO2 05/06/17 07:22 97.9 102 15 134/89 (104) 95 Orders Orders Ns (Bolus) Inj (05/06/17 07:45) Ondansetron Inj (Zofran Inj) (05/06/17 07:45) MDM Medical Decision Making Medical Screen Exam Complete: Yes Emergency Medical Condition: Yes Differential Diagnosis Differential diagnosis including side effect to medications, gastroenteritis, dehydration, electrolyte imbalance. Narrative Course 61-year-old female with dizziness and nausea vomiting after taking oxycodone this morning. Examination benign. Normal saline solution 500 cc IV bolus. Zofran 4 mg IV. Diagnosis Primary Impression: Medication side effect Qualified Codes: T88.7XXA - Unspecified adverse effect of drug or medicament, initial encounter Patient Instructions: General Instructions Additional Instructions: Zofran as needed. Exercising Tylenol for pain. Avoid oxycodone unless is severe pain. Take oxycodone was Zofran as needed. Follow-up with personal physician. Return if persistent problem or worse. Med/Other Pt SpecificInfo: Prescription(s) given Scripts Ondansetron Odt (Zofran Odt) 4 Mg Tab 4 MG SL Q6HR Y for Nausea/Vomiting, #10 TAB 0 Refills Prov: Celestino Sarmiento MD 05/06/17 Disposition: 01 DISCHARGE HOME Condition: Stable Celestino Sarmiento MD May 06, 2017 07:47
== END 2017-05-06 08:22 | disposition home or self-care (01) ==
LOC: NEPC 07:15
DX: R42 Dizziness and giddiness (principal); R11.2 Nausea with vomiting, unspecified; T40.2X5A Adverse effect of other opioids, initial encounter
CPT/HCPCS: 96374; 99284; J2405; J7040

== ENCOUNTER 2017-07-11 12:10 | Emergency (ER) | payer BC, OTHER ==
[~2017-07-11] VITALS: Ht 162.6 cm; Wt 50.0 kg
[~2017-07-11 12:10] MED LIST changes: +CEPH250C PO; +OXYC1TAB63 PO; +ZOFR4TAB3 SL
[2017-07-11 12:20] VITALS: BP 127/71; PULSE 88; RESP 18; TEMP 98.2; O2SAT 99
[2017-07-11 12:21] VITALS: BP_SYST 127; BP_SYST 128; BP_DIAS 68; BP_DIAS 71; PULSE 81; RESP 18; O2SAT 98
[2017-07-11] MEDS ORDERED: SODIUM CHLORID 0.9% 500 ML INJ 500 ML IV ONE (12:30)
[2017-07-11 12:40] LABS: AUTOMATED NEUTROPHIL # 7.6 TH/MM3 (1.8-7.7); BASOPHIL # 0.1 TH/MM3 (0-0.2); BASOPHIL % 0.7 % (0.0-2.0); EOSINOPHIL # 0.1 TH/MM3 (0-0.4); EOSINOPHIL % 1.1 % (0.0-4.0); HEMOGLOBIN 13.1 GM/DL (11.6-15.3); LYMPH % 15.2 % (9.0-44.0); LYMPHOCYTE # 1.5 TH/MM3 (1.0-4.8); MEAN CELL VOLUME 84.3 FL (80.0-100.0); MEAN CORPUSCULAR HEMOGLOBIN 28.2 PG (27.0-34.0); MEAN CORPUSCULAR HGB CONC 33.5 % (32.0-36.0); MEAN PLATELET VOLUME 8.2 FL (7.0-11.0); MONO % 5.8 % (0.0-8.0); MONOCYTE # 0.6 TH/MM3 (0-0.9); NEUT % 77.2 % (16.0-70.0); PLATELET COUNT 274 TH/MM3 (150-450); RED BLOOD COUNT 4.62 MIL/MM3 (4.00-5.30); WHITE BLOOD COUNT 9.8 TH/MM3 (4.0-11.0)
[2017-07-11 12:54] LABS: INTERNATIONAL NORMALIZED RATIO 1.1 RATIO; PROTHROMBIN TIME - PATIENT 10.8 SEC (9.8-11.6)
--- NOTE | 2017-07-11 12:58 | PD ---
HPI Chief Complaint: Chest Pain Time Seen by Provider: 12:19 Travel History International Travel<30 days: No Contact w/Intl Traveler<30days: No Traveled to known affect area: No History of Present Illness HPI 61-year-old female that presents to the ED for evaluation of chest pain. Per patient she has had chest pain fro about an hour. Per patient she was watching TV when she developed a left-sided chest pain. Per patient's cramping in nature. Per patient she's had this before and said that she had a full workup that was negative. Patient does have a chronic history of anxiety. Patient is a frequent flier to this hospital has not been in some time. She states that the pain feels similar to her previous episodes. States that initially was 6 out of 10 and now is 2 out of 10. Ambulance was called and they provided oxygen which diminished the pain. She states that she has a history of hypertension. She denies any history of diabetes or high cholesterol. She denies any family history of heart disease. She has had a stress test and per records she had one here in October 2015 that was negative. She does not take aspirin secondary to per patient causing GI issues. She was not given any medications by ambulance. She states that currently she feels better. Pain does not radiate. No shortness of breath. No injuries reported. No recent travel. No control or hormone replacement per patient. PFSH Past Medical History Anxiety: Yes (panic attacks) Depression: Yes Heart Rhythm Problems: No Cancer: No Cardiac Catheterization: No Cardiovascular Problems: Yes High Cholesterol: No Congestive Heart Failure: No Diabetes: No Diminished Hearing: No Diverticulitis: Yes Endocrine: No Gastrointestinal Disorders: Yes (IRRITABLE BOWEL SYNDROME) Genitourinary: No Hiatal Hernia: Yes Heparin Induced Thrombocytopen: No Hypertension: Yes Immune Disorder: No Implanted Vascular Access Dvce: No Kidney Stones: Yes Musculoskeletal: No Neurologic: No Psychiatric: Yes Respiratory: No Immunizations Current: Yes Ulcer: Yes ?: Not Menopausal: Yes : 1 Para: 1 Miscarriage: 0 : 0 Past Surgical History Abdominal Surgery: Yes (c section) Section: Yes Coronary Artery Bypass Graft: No Genitourinary Surgery: Yes (L kidney stent) Hysterectomy: No Tonsillectomy: Yes Other Surgery: Yes Family History Family Hypercholesterolemia: Yes Social History Alcohol Use: No Tobacco Use: No Substance Use: No Allergies-Medications (Allergen,Severity, Reaction): Coded Allergies: acetaminophen (Unverified Allergy, Severe, VOMITING, 05/06/17) ciprofloxacin (Unverified Allergy, Severe, Nausea/Vomiting, 05/06/17) hydrocodone (Unverified Allergy, Severe, VOMITING, 05/06/17) hydroxyzine (Unverified Adverse Reaction, Mild, Lethargy, 05/06/17) Reported Meds & Prescriptions Reported Meds & Active Scripts Active Zofran Odt (Ondansetron Odt) 4 Mg Tab 4 Mg SL Q6HR PRN Reported Buspirone (Buspirone HCl) 10 Mg Tab 10 Mg PO DAILY Olanzapine 5 Mg Tab 5 Mg PO HS Amlodipine (Amlodipine Besylate) 5 Mg Tab 5 Mg PO DAILY Review of Systems Except as stated in HPI: all other systems reviewed are Neg Physical Exam Narrative GENERAL: SKIN: Warm and dry. HEAD: Atraumatic. Normocephalic. EYES: Pupils equal and round. No scleral icterus. No injection or drainage. ENT: No nasal bleeding or discharge. Mucous membranes pink and moist. Tongue is midline. No uvula deviation. NECK: Trachea midline. No JVD. CARDIOVASCULAR: Regular rate and rhythm. No murmurs, S3, S4. Chest pain is not reproducible with touch. RESPIRATORY: No accessory muscle use. Clear to auscultation. Breath sounds equal bilaterally. GASTROINTESTINAL: Abdomen soft, non-tender, nondistended. Hepatic and splenic margins not palpable. MUSCULOSKELETAL: Extremities without clubbing, cyanosis, or edema. No obvious deformities. Full range of motion of the upper and lower extremities bilaterally. 2+ pulses bilaterally. NEUROLOGICAL: Awake and alert. No obvious cranial nerve deficits. Motor grossly within normal limits. Five out of 5 muscle strength in the arms and legs. Normal speech. PSYCHIATRIC: Appropriate mood and affect; insight and judgment normal. Data Data Last Documented VS Vital Signs Date Time Temp Pulse Resp B/P (MAP) Pulse Ox O2 Delivery O2 Flow Rate FiO2 07/11/17 12:23 86 18 95 Room Air 07/11/17 12:21 07/11/17 12:20 98.2 Orders Orders Electrocardiogram (07/11/17 12:19) Basic Metabolic Panel (Bmp) (07/11/17 12:19) Ckmb (Isoenzyme) Profile (07/11/17 12:19) Complete Blood Count With Diff (07/11/17 12:19) Magnesium (Mg) (07/11/17 12:19) Prothrombin Time / Inr (Pt) (07/11/17 12:19) Act Partial Throm Time (Ptt) (07/11/17 12:19) Troponin I (07/11/17 12:19) Lipase (07/11/17 12:19) Chest, Single Ap (07/11/17 12:19) Ecg Monitoring (07/11/17 12:19) Bilateral Bp Monitoring (07/11/17 12:19) Iv Access Insert/Monitor (07/11/17 12:19) Oximetry (07/11/17 12:19) Sodium Chlorid 0.9% 500 Ml Inj (Ns 500 M (07/11/17 12:30) CKMB (07/11/17 12:26) CKMB% (07/11/17 12:26) Admit Order (Ed Use Only) (07/11/17 13:24) Labs Laboratory Tests Test 07/11/17 12:26 White Blood Count 9.8 TH/MM3 Red Blood Count 4.62 MIL/MM3 Hemoglobin 13.1 GM/DL Hematocrit 39.0 % Mean Corpuscular Volume 84.3 FL Mean Corpuscular Hemoglobin 28.2 PG Mean Corpuscular Hemoglobin Concent 33.5 % Red Cell Distribution Width 15.0 % Platelet Count 274 TH/MM3 Mean Platelet Volume 8.2 FL Neutrophils (%) (Auto) 77.2 % Lymphocytes (%) (Auto) 15.2 % Monocytes (%) (Auto) 5.8 % Eosinophils (%) (Auto) 1.1 % Basophils (%) (Auto) 0.7 % Neutrophils # (Auto) 7.6 TH/MM3 Lymphocytes # (Auto) 1.5 TH/MM3 Monocytes # (Auto) 0.6 TH/MM3 Eosinophils # (Auto) 0.1 TH/MM3 Basophils # (Auto) 0.1 TH/MM3 CBC Comment DIFF FINAL Differential Comment Prothrombin Time 10.8 SEC Prothromb Time International Ratio 1.1 RATIO Activated Partial Thromboplast Time 22.0 SEC Blood Urea Nitrogen 14 MG/DL Creatinine 0.75 MG/DL Random Glucose 103 MG/DL Calcium Level 9.7 MG/DL Magnesium Level 2.2 MG/DL Sodium Level 140 MEQ/L Potassium Level 3.8 MEQ/L Chloride Level 104 MEQ/L Carbon Dioxide Level 27.6 MEQ/L Anion Gap 8 MEQ/L Estimat Glomerular Filtration Rate 79 ML/MIN Total Creatine Kinase 101 U/L Creatine Kinase MB LESS THAN 0.5 NG/ML Troponin I LESS THAN 0.02 NG/ML Lipase 99 U/L MDM Medical Decision Making Medical Screen Exam Complete: Yes Emergency Medical Condition: Yes Medical Record Reviewed: Yes Interpretation(s) EKG shows sinus rhythm with no sign of acute ischemia remembers by me and attending. CBC & BMP Diagram 07/11/17 12:26 Calcium Level 9.7, Magnesium Level 2.2 Last Impressions Chest X-Ray 07/11/17 1219 Signed Impressions: Service Date/Time: Tuesday, July 11, 2017 12:36 - CONCLUSION: No acute disease. Vinayak Rodriguez MD troponin and CKMB negative Differential Diagnosis Chest pain versus atypical chest pain versus ACS versus anxiety versus NSTEMI Narrative Course 61-year-old female that presents to the ED for evaluation of left-sided chest pain. Patient was properly examined and was found to have signs and symptoms consistent with chest pain. Unclear etiology at this time. She does have moderate this for heart disease. Labs and imaging were ordered. Patient declined aspirin at this time because of GI upset side effects. Labs and imaging showed no sign of acute disease. Case was discussed in my attending Dr. Clarke who evaluated the patient and recommends admission to the chest pain center. Patient agrees for admission to the chest pain center. Patient was admitted to the chest pain center. Diagnosis Primary Impression: Chest pain Qualified Codes: R07.9 - Chest pain, unspecified Admitting Information Admitting Physician Requests: Karson Staples Jul 11, 2017 12:58
[2017-07-11 13:00] LABS: BICARBONATE 27.6 MEQ/L (21.0-32.0); BLOOD UREA NITROGEN 14 MG/DL (7-18); CALCIUM 9.7 MG/DL (8.5-10.1); CHLORIDE 104 MEQ/L (98-107); CREATININE 0.75 MG/DL (0.50-1.00); GLOMERULAR FILTRATION RATE 79 ML/MIN (>89); GLUCOSE,RANDOM 103 MG/DL (74-106); LIPASE 99 U/L (73-393); MAGNESIUM 2.2 MG/DL (1.5-2.5); SODIUM (NA) 140 MEQ/L (136-145)
--- NOTE | 2017-07-11 13:01 | RADRPT ---
EXAM DATE/TIME: 07/11/2017 12:36 [facility] COMPARISON: CT ABDOMEN & PELVIS W/O CONTRAST, January 03, 2017, 19:05. CHEST SINGLE AP, August 30, 2016, 12:57. INDICATIONS : Left sided chest pain for one day. MEDICAL HISTORY : Cardiovascular disease. Hypertension SURGICAL HISTORY : None. ENCOUNTER: Initial ACUITY: 1 day PAIN SCORE: 3/10 LOCATION: Left chest FINDINGS: A single view of the chest demonstrates the lungs to be symmetrically aerated without evidence of mas s, infiltrate or effusion. The cardiomediastinal contours are unremarkable. Osseous structures are intact. There is a 6.9 cm round peripherally calcified mass in the left upper quadrant which as been shown to be within the spleen on prior CT examinations. This is unchanged. CONCLUSION: No acute disease. Vinayak Rodriguez MD on July 11, 2017 at 12:57 Board Certified Radiologist. This report was verified electronically.
[2017-07-11 13:04] LABS: TROPONIN I LESS THAN 0.02 NG/ML (0.02-0.05)
--- NOTE | 2017-07-11 13:53 | PD ---
Physical Exam Narrative GENERAL: Well-nourished, well-developed patient. SKIN: Warm and dry. HEAD: Normocephalic and atraumatic. EYES: No injection or drainage. ENT: No nasal drainage noted. NECK: Supple, trachea midline. CARDIOVASCULAR: Regular rate and rhythm RESPIRATORY: No increased effort. No accessory muscle use. NEUROLOGICAL: Awake and alert. Moves all extremities and sensory grossly within normal limits. Normal speech. Data Data Last Documented VS Vital Signs Date Time Temp Pulse Resp B/P (MAP) Pulse Ox O2 Delivery O2 Flow Rate FiO2 07/11/17 12:23 86 18 95 Room Air 07/11/17 12:21 07/11/17 12:20 98.2 Orders Orders Electrocardiogram (07/11/17 12:19) Basic Metabolic Panel (Bmp) (07/11/17 12:19) Ckmb (Isoenzyme) Profile (07/11/17 12:19) Complete Blood Count With Diff (07/11/17 12:19) Magnesium (Mg) (07/11/17 12:19) Prothrombin Time / Inr (Pt) (07/11/17 12:19) Act Partial Throm Time (Ptt) (07/11/17 12:19) Troponin I (07/11/17 12:19) Lipase (07/11/17 12:19) Chest, Single Ap (07/11/17 12:19) Ecg Monitoring (07/11/17 12:19) Bilateral Bp Monitoring (07/11/17 12:19) Iv Access Insert/Monitor (07/11/17 12:19) Oximetry (07/11/17 12:19) Sodium Chlorid 0.9% 500 Ml Inj (Ns 500 M (07/11/17 12:30) CKMB (07/11/17 12:26) CKMB% (07/11/17 12:26) Admit Order (Ed Use Only) (07/11/17 13:24) Labs Laboratory Tests Test 07/11/17 12:26 White Blood Count 9.8 TH/MM3 Red Blood Count 4.62 MIL/MM3 Hemoglobin 13.1 GM/DL Hematocrit 39.0 % Mean Corpuscular Volume 84.3 FL Mean Corpuscular Hemoglobin 28.2 PG Mean Corpuscular Hemoglobin Concent 33.5 % Red Cell Distribution Width 15.0 % Platelet Count 274 TH/MM3 Mean Platelet Volume 8.2 FL Neutrophils (%) (Auto) 77.2 % Lymphocytes (%) (Auto) 15.2 % Monocytes (%) (Auto) 5.8 % Eosinophils (%) (Auto) 1.1 % Basophils (%) (Auto) 0.7 % Neutrophils # (Auto) 7.6 TH/MM3 Lymphocytes # (Auto) 1.5 TH/MM3 Monocytes # (Auto) 0.6 TH/MM3 Eosinophils # (Auto) 0.1 TH/MM3 Basophils # (Auto) 0.1 TH/MM3 CBC Comment DIFF FINAL Differential Comment Prothrombin Time 10.8 SEC Prothromb Time International Ratio 1.1 RATIO Activated Partial Thromboplast Time 22.0 SEC Blood Urea Nitrogen 14 MG/DL Creatinine 0.75 MG/DL Random Glucose 103 MG/DL Calcium Level 9.7 MG/DL Magnesium Level 2.2 MG/DL Sodium Level 140 MEQ/L Potassium Level 3.8 MEQ/L Chloride Level 104 MEQ/L Carbon Dioxide Level 27.6 MEQ/L Anion Gap 8 MEQ/L Estimat Glomerular Filtration Rate 79 ML/MIN Total Creatine Kinase 101 U/L Creatine Kinase MB LESS THAN 0.5 NG/ML Troponin I LESS THAN 0.02 NG/ML Lipase 99 U/L MDM Supervised Visit with VANESSA: Yes Interpretation(s) CBC & BMP Diagram 07/11/17 12:26 Calcium Level 9.7, Magnesium Level 2.2 Last 24 hours Impressions Chest X-Ray 07/11/17 1219 Signed Impressions: Service Date/Time: Tuesday, July 11, 2017 12:36 - CONCLUSION: No acute disease. Vinayak Rodriguez MD Narrative Course I, Dr. levy, have reviewed the advance practice practitioner's documentation and am in agreement, met with the patient face to face, made the diagnosis, and the medical decision making was done by me. *My assessment and Findings: 61 y/o female presents with chest pain, additional testing no emergent findings. Agrees to chest pain center observation Diagnosis Primary Impression: Chest pain Qualified Codes: R07.9 - Chest pain, unspecified Tootie Levy MD Jul 11, 2017 13:53
--- NOTE | 2017-07-11 14:11 | HHI.DCPOC ---
Discharge Care Plan Diagnosis: (1) Atypical chest pain Your Health Problems Are: Anxiety Goals to Promote Your Health * To prevent worsening of your condition and complications * To maintain your health at the optimal level Directions to Meet Your Goals Take your medications as prescribed Follow your dietary instruction Follow activity as directed Keep your appointments as scheduled Take your immunizations and boosters as scheduled If your symptoms worsen call your PCP, if no PCP go to Urgent Care Center or Emergency Room Smoking is Dangerous to Your Health. Avoid second hand smoke Call the 24-hour hour crisis hotline for domestic abuse at Campbell Santiago MD Jul 11, 2017 14:11
--- NOTE | 2017-07-11 14:37 | HHI.HP ---
HPI Service CHEST PAIN CENTER Primary Care Physician Sarah Estrella MD Chief Complaint CHEST PAIN History of Present Illness 61 YO lady well known to the ED with multiple visits this past 12 months. She has chronic anxiety depression under treatment and multiple other admissions including complaints of chest pain exactly similar to today. This morning she was watching TV and had some dull cramping pain in her right upper chest, almost her shoulder that was not brought on by activity or stress but scared her. She had no radiation, no SOB, diaphoresis, nausea or associated symptoms. She took tylenol with some relief but called 911. On arrival she was given O2 and this relieved the pain significantly. By the time i saw her she had no pain and wanted to go home. The total time of the discomfort was about an hour. She does recall that she has had this similar pain multiple times before. She was seen by Dr. Connolly about a year ago for almost exactly the same and underwent full evaluation including stress testing which was negative. She is followed at home by a home health care worker and had a PCP and psychiatric follow up so she is well covered at home and much more emotionally comfortable there. Review of Systems Cardiovascular: COMPLAINS OF: See HPI Psychiatric: COMPLAINS OF: Anxiety, Depression Past Family Social History Allergies: Coded Allergies: acetaminophen (Unverified Allergy, Severe, VOMITING, 05/06/17) ciprofloxacin (Unverified Allergy, Severe, Nausea/Vomiting, 05/06/17) hydrocodone (Unverified Allergy, Severe, VOMITING, 05/06/17) hydroxyzine (Unverified Adverse Reaction, Mild, Lethargy, 05/06/17) Past Medical History Anxiety Depression Abdominal hernia Irritable bowel HTN kidney stone Ulcer Past Surgical History Stent kidney Reported Medications Reported Meds & Active Scripts Active Zofran Odt (Ondansetron Odt) 4 Mg Tab 4 Mg SL Q6HR PRN Reported Buspirone (Buspirone HCl) 10 Mg Tab 10 Mg PO DAILY Olanzapine 5 Mg Tab 5 Mg PO HS Amlodipine (Amlodipine Besylate) 5 Mg Tab 5 Mg PO DAILY Family History Father 94 Mother 92 Both unknown brother LW Social History No alcohol or tobacco Lives alone Physical Exam Vital Signs Vital Signs Date Time Temp Pulse Resp B/P (MAP) Pulse Ox O2 Delivery O2 Flow Rate FiO2 07/11/17 12:23 86 18 95 Room Air 07/11/17 12:21 18 98 Room Air 07/11/17 12:21 81 127/71 (89) 128/68 (88) 07/11/17 12:20 98.2 88 18 127/71 (89) 99 Room Air Physical Exam GENERAL; Tremulous, anxious about having to stay in hospital HEENT; PERLEOMI, MM moist, no lesions NECK' No JVD masses nodes or bruits Chest; Clear to ausc with no RWR CV; RSR withouot GRM Abd: Non tender no guarding or rebound and no mass Ext: No CCE Neuro: Anxious, hyperactive, tremulous but able to stand walk and function well Laboratory Laboratory Tests Test 07/11/17 12:26 White Blood Count 9.8 Red Blood Count 4.62 Hemoglobin 13.1 Hematocrit 39.0 Mean Corpuscular Volume 84.3 Mean Corpuscular Hemoglobin 28.2 Mean Corpuscular Hemoglobin Concent 33.5 Red Cell Distribution Width 15.0 Platelet Count 274 Mean Platelet Volume 8.2 Neutrophils (%) (Auto) 77.2 Lymphocytes (%) (Auto) 15.2 Monocytes (%) (Auto) 5.8 Eosinophils (%) (Auto) 1.1 Basophils (%) (Auto) 0.7 Neutrophils # (Auto) 7.6 Lymphocytes # (Auto) 1.5 Monocytes # (Auto) 0.6 Eosinophils # (Auto) 0.1 Basophils # (Auto) 0.1 CBC Comment DIFF FINAL Differential Comment Prothrombin Time 10.8 Prothromb Time International Ratio 1.1 Activated Partial Thromboplast Time 22.0 Blood Urea Nitrogen 14 Creatinine 0.75 Random Glucose 103 Calcium Level 9.7 Magnesium Level 2.2 Sodium Level 140 Potassium Level 3.8 Chloride Level 104 Carbon Dioxide Level 27.6 Anion Gap 8 Estimat Glomerular Filtration Rate 79 Total Creatine Kinase 101 Creatine Kinase MB LESS THAN 0.5 Troponin I LESS THAN 0.02 Lipase 99 Result Diagram: 07/11/17 1226 07/11/17 1226 Imaging Evert Course Very atypical chest pain that is non cardiac in origin and with negative EKG and enzymes. She has a long psych history and is well cared for in community. Since she is apprehensive about staying in the hospital overnight and has such a low probabiliy of significant CAD it was felt appropriate to allow her to discharge and FU with her community provider this coming week. Caprini VTE Risk Assessment Caprini VTE Risk Assessment: No/Low Risk (score <= 1) Caprini Risk Assessment Model Point Value = 1 Point Value = 2 Point Value = 3 Point Value = 5 Age 41-60 Minor surgery BMI > 25 kg/m2 Swollen legs Varicose veins or History of unexplained or recurrent spontaneous Oral contraceptives or hormone replacement Sepsis (< 1 month) Serious lung disease, including pneumonia (< 1 month) Abnormal pulmonary function Acute myocardial infarction Congestive heart failure (< 1 month) History of inflammatory bowel disease Medical patient at bed rest Age 61-74 Arthroscopic surgery Major open surgery (> 45 min) Laparoscopic surgery (> 45 min) Malignancy Confined to bed (> 72 hours) Immobilizing plaster cast Central venous access Age >= 75 History of VTE Family history of VTE Factor V Leiden Prothrombin [id number] Lupus anticoagulant Anticardiolipin antibodies Elevated serum homocysteine Heparin-induced thrombocytopenia Other congenital or acquired thrombophilia Stroke (< 1 month) Elective arthroplasty Hip, pelvis, or leg fracture Acute spinal cord injury (< 1 month) Prophylaxis Regimen Total Risk Factor Score Risk Level Prophylaxis Regimen 0-1 Low Early ambulation 2 Moderate Order ONE of the following: *Sequential Compression Device (SCD) *Heparin 5000 units SQ BID 3-4 Higher Order ONE of the following medications: *Heparin 5000 units SQ TID *Enoxaparin/Lovenox 40 mg SQ daily (WT < 150 kg, CrCl > 30 mL/min) *Enoxaparin/Lovenox 30 mg SQ daily (WT < 150 kg, CrCl > 10-29 mL/min) *Enoxaparin/Lovenox 30 mg SQ BID (WT < 150 kg, CrCl > 30 mL/min) AND/OR *Sequential Compression Device (SCD) 5 or more Highest Order ONE of the following medications: *Heparin 5000 units SQ TID (Preferred with Epidurals) *Enoxaparin/Lovenox 40 mg SQ daily (WT < 150 kg, CrCl > 30 mL/min) *Enoxaparin/Lovenox 30 mg SQ daily (WT < 150 kg, CrCl > 10-29 mL/min) *Enoxaparin/Lovenox 30 mg SQ BID (WT < 150 kg, CrCl > 30 mL/min) AND *Sequential Compression Device (SCD) Campbell Santiago MD Jul 11, 2017 14:37
--- NOTE | 2017-07-11 22:16 | EKG ---
Date Performed: 07/11/2017 Time Performed: 12:21:19 PTAGE: 61 years EKG: Sinus rhythm WITH SHORT AL INTERVAL BORDERLINE ECG No significant change from prior electrocardiogram. DOCTOR: David Daniel Interpretating Date/Time 07/11/2017 22:15:01
== END 2017-07-11 15:37 | disposition home or self-care (01) ==
LOC: NEPC 12:10 → UNDOADMOB 13:25 → NEDA 13:25
DX: R07.9 Chest pain, unspecified (principal); F32.9 Major depressive disorder, single episode, unspecified; I51.9 Heart disease, unspecified; K44.9 Diaphragmatic hernia without obstruction or gangrene; F41.9 Anxiety disorder, unspecified; Z87.442 Personal history of urinary calculi; Z86.79 Personal history of other diseases of the circulatory system; Z88.6 Allergy status to analgesic agent; R94.31 Abnormal electrocardiogram [ECG] [EKG]
CPT/HCPCS: 71010; 80048; 82550; 82552; 83690; 83735; 84484; 85025; 85610; 85730; 93005; 99285; J7040

== ENCOUNTER 2017-07-26 03:14 | Emergency (ER) | payer SELFPAY ==
[~2017-07-26] VITALS: Ht 152.4 cm; Wt 50.0 kg
[~2017-07-26 03:14] MED LIST changes: -CEPH250C PO; -OXYC1TAB63 PO
--- NOTE | 2017-07-26 03:53 | PD ---
HPI Chief Complaint: shaking Time Seen by Provider: 03:46 Travel History International Travel<30 days: No Contact w/Intl Traveler<30days: No Traveled to known affect area: No History of Present Illness HPI 62-year-old female presents to the emergency department from home by EMS transport for evaluation of shaking. Patient has history of anxiety depression and hypertension. Patient is seen frequently in the emergency department for chest pain or anxiety-related complaints. Patient states after arriving to the emergency department to be evaluated for her shaking she had a few seconds of chest pain. Patient states this shaking is improving. Patient states that she' s been taking her medications as prescribed. Patient is seen in mental health provider as recently as 1 week ago in her medications were not changed. Patient sees her mental health provider once every 3 months. Patient's had no recent fever or respiratory illness cough congestion shortness of breath abdominal pain nausea vomiting or sweats. Patient has been anxious over the past 2 days and states that has affected her sleeping. Patient has history of insomnia. PFSH Past Medical History Narrative Medical Nursing notes reviewed Anxiety: Yes (panic attacks) Depression: Yes Heart Rhythm Problems: No Cancer: No Cardiac Catheterization: No Cardiovascular Problems: Yes High Cholesterol: No Congestive Heart Failure: No Diabetes: No Diminished Hearing: No Diverticulitis: Yes Endocrine: No Gastrointestinal Disorders: Yes (IRRITABLE BOWEL SYNDROME) Genitourinary: No Hiatal Hernia: Yes Heparin Induced Thrombocytopen: No Hypertension: Yes Immune Disorder: No Implanted Vascular Access Dvce: No Kidney Stones: Yes Musculoskeletal: No Neurologic: No Psychiatric: Yes Respiratory: No Immunizations Current: Yes Ulcer: Yes Menopausal: Yes : 1 Para: 1 Miscarriage: 0 : 0 Past Surgical History Abdominal Surgery: Yes (c section) Section: Yes Coronary Artery Bypass Graft: No Genitourinary Surgery: Yes (L kidney stent) Hysterectomy: No Tonsillectomy: Yes Other Surgery: Yes Family History Family Hypercholesterolemia: Yes Social History Alcohol Use: No Tobacco Use: No Substance Use: No Allergies-Medications (Allergen,Severity, Reaction): Coded Allergies: acetaminophen (Unverified Allergy, Severe, VOMITING, 05/06/17) ciprofloxacin (Unverified Allergy, Severe, Nausea/Vomiting, 05/06/17) hydrocodone (Unverified Allergy, Severe, VOMITING, 05/06/17) hydroxyzine (Unverified Adverse Reaction, Mild, Lethargy, 05/06/17) Reported Meds & Prescriptions Reported Meds & Active Scripts Active Zofran Odt (Ondansetron Odt) 4 Mg Tab 4 Mg SL Q6HR PRN Reported Buspirone (Buspirone HCl) 10 Mg Tab 10 Mg PO DAILY Olanzapine 5 Mg Tab 5 Mg PO HS Amlodipine (Amlodipine Besylate) 5 Mg Tab 5 Mg PO DAILY Review of Systems Except as stated in HPI: all other systems reviewed are Neg General / Constitutional: No: Fever, Chills HENT: No: Congestion Cardiovascular: No: Chest Pain or Discomfort Respiratory: No: Shortness of Breath Gastrointestinal: No: Nausea, Vomiting, Abdominal Pain Genitourinary: No: Dysuria, Flank Pain Musculoskeletal: No: Myalgias, Arthralgias Skin: No Rash Neurologic: No: Weakness, Dizziness, Syncope, Focal Abnormalities, Coordination Problem Psychiatric: Positive: Anxiety Hematologic/Lymphatic: No: Easy Bruising Physical Exam Narrative GENERAL: Well-developed well-nourished female in no acute distress no respiratory distress; GCS 15; no tremor SKIN: Warm and dry. HEAD: Normocephalic. EYES: No scleral icterus. No injection or drainage. NECK: Supple, trachea midline. No JVD or lymphadenopathy. CARDIOVASCULAR: Regular rate and rhythm without murmurs, gallops, or rubs. RESPIRATORY: Breath sounds equal bilaterally. No accessory muscle use. GASTROINTESTINAL: Abdomen soft, non-tender, nondistended. MUSCULOSKELETAL: No cyanosis, or edema. BACK: Nontender without obvious deformity. No CVA tenderness. Data Data Last Documented VS Vital Signs Date Time Temp Pulse Resp B/P (MAP) Pulse Ox O2 Delivery O2 Flow Rate FiO2 07/26/17 04:09 98.4 82 16 148/83 (104) 99 Orders Orders Electrocardiogram (07/26/17 ) [facility] Medical Decision Making Medical Screen Exam Complete: Yes Emergency Medical Condition: Yes Medical Record Reviewed: Yes Interpretation(s) EKG: Normal sinus rhythm rate [address] elevation injury pattern or ectopy noted Differential Diagnosis Tremor, panic attack, atypical chest pain, seizure, medication non-compliance, exacerbation bipolar d/o Narrative Course 62-year-old female comes to the emergency department by EMS transport because she was shaking at home no fever no chills no nausea no vomiting no shortness of breath no sweats no near-syncope or syncope patient was not having chest pain at the time but states when she arrived here for few seconds she did have chest pain. Patient was just admitted as an observation patient 07/11/17 for atypical chest pain and has had extensive cardiac workup within the past year by chemical tester Dr. Connolly. Patient is not diabetic does not have dyslipidemia and does not smoke cigarettes no reported family history of premature onset heart disease. Patient states her symptoms are improved at this time images second EKG that she is ready to go home reportedly. It's 4:20 AM patient is a symptomatic in stable for outpatient management. Diagnosis Primary Impression: Episode of shaking Referrals: Primary Care Physician call for appointment Psychiatrist call for appointment Patient Instructions: General Instructions Additional Instructions: Continue current medications as presently prescribed Follow-up with your primary care provider and your psychiatrist Return to the emergency department for any concerns or change in condition May take xanax as prescribed as needed for anxiety Med/Other Pt SpecificInfo: Prescription(s) given Scripts Alprazolam (Xanax) 0.25 Mg Tab 0.25 MG PO Q8H Y for ANXIETY, #4 TAB 0 Refills Prov: Evonne Mckee MD 07/26/17 Disposition: 01 DISCHARGE HOME Condition: Stable Evonne Mckee MD Jul 26, 2017 03:53
[2017-07-26 04:09] VITALS: BP 148/83; PULSE 82; RESP 16; TEMP 98.4; O2SAT 99
[2017-07-26] MEDS ORDERED: ALPR.25 PO (04:22)
--- NOTE | 2017-07-26 15:13 | EKG ---
Date Performed: 07/26/2017 Time Performed: 04:10:10 PTAGE: 62 years EKG: Sinus rhythm WITH SHORT DC INTERVAL Since previous tracing, no significant change noted BORDERLINE ECG PREVIOUS TRACING : 07/11/2017 12.21 DOCTOR: Brent Mckeon Interpretating Date/Time 07/26/2017 15:12:25
== END 2017-07-26 04:51 | disposition home or self-care (01) ==
LOC: NEPC 03:14
DX: F41.9 Anxiety disorder, unspecified (principal); R07.9 Chest pain, unspecified; I10 Essential (primary) hypertension
CPT/HCPCS: 93005; 99283

== ENCOUNTER 2017-09-21 11:52 | Emergency (ER) | payer BC ==
[~2017-09-21] VITALS: Ht 152.4 cm; Wt 50.0 kg
[~2017-09-21 11:52] MED LIST changes: +ALPR.25 PO
[2017-09-21 12:24] VITALS: BP 128/74; PULSE 87; RESP 18; TEMP 98.4; O2SAT 98
--- NOTE | 2017-09-21 12:53 | RADRPT ---
EXAM DATE/TIME: 09/21/2017 12:40 [facility] COMPARISON: CHEST SINGLE AP, July 11, 2017, 12:36. INDICATIONS : Short of breath. MEDICAL HISTORY : Hypertension. Diverticulitis. Hiatal hernia. SURGICAL HISTORY : section. ENCOUNTER: Initial ACUITY: 1 day PAIN SCORE: 0/10 LOCATION: Bilateral chest FINDINGS: PA and lateral views of the chest demonstrate minimal linear densities lung bases without evidence of mass, infiltrate or effusion. The cardiomediastinal contours are unremarkable. Osseous structures are intact. Calcified structure left upper abdomen unchanged. Degenerative changes thoracic spine wit h slight kyphosis. CONCLUSION: Minimal bibasilar subsegmental atelectasis. Maxime Wheeler MD on September 21, 2017 at 12:51 Board Certified Radiologist. This report was verified electronically.
[2017-09-21 13:44] LABS: BASOPHIL # 0.1 TH/MM3 (0-0.2); BASOPHIL % 0.6 % (0.0-2.0); EOSINOPHIL # 0.1 TH/MM3 (0-0.4); EOSINOPHIL % 1.2 % (0.0-4.0); HEMOGLOBIN 12.8 GM/DL (11.6-15.3); LYMPH % 17.4 % (9.0-44.0); LYMPHOCYTE # 1.7 TH/MM3 (1.0-4.8); MEAN CELL VOLUME 82.8 FL (80.0-100.0); MEAN CORPUSCULAR HEMOGLOBIN 27.9 PG (27.0-34.0); MEAN CORPUSCULAR HGB CONC 33.7 % (32.0-36.0); MEAN PLATELET VOLUME 8.2 FL (7.0-11.0); MONO % 7.8 % (0.0-8.0); MONOCYTE # 0.7 TH/MM3 (0-0.9); PLATELET COUNT 295 TH/MM3 (150-450); RED BLOOD COUNT 4.59 MIL/MM3 (4.00-5.30); RED CELL DISTRIBUTION WIDTH 15.2 % (11.6-17.2); WHITE BLOOD COUNT 9.6 TH/MM3 (4.0-11.0)
[2017-09-21 13:53] LABS: INTERNATIONAL NORMALIZED RATIO 1.1 RATIO; PROTHROMBIN TIME - PATIENT 10.9 SEC (9.8-11.6)
[2017-09-21 14:15] LABS: ALBUMIN 3.8 GM/DL (3.4-5.0); AST (GOT) 13 U/L (15-37); BICARBONATE 23.7 MEQ/L (21.0-32.0); BLOOD UREA NITROGEN 9 MG/DL (7-18); CHLORIDE 105 MEQ/L (98-107); CREATININE 0.76 MG/DL (0.50-1.00); GLOMERULAR FILTRATION RATE 77 ML/MIN (>89); GLUCOSE,RANDOM 107 MG/DL (74-106); MAGNESIUM 1.8 MG/DL (1.5-2.5); SODIUM (NA) 141 MEQ/L (136-145)
[2017-09-21 14:16] LABS: ALT (GPT) 14 U/L (10-53)
[2017-09-21 14:20] LABS: ALKALINE PHOSPHATASE 104 U/L (45-117); TOTAL BILIRUBIN ADULT 0.5 MG/DL (0.2-1.0); TOTAL PROTEIN 8.1 GM/DL (6.4-8.2); TROPONIN I LESS THAN 0.02 NG/ML (0.02-0.05)
--- NOTE | 2017-09-21 15:30 | PD ---
HPI Chief Complaint: Anxiety Time Seen by Provider: 15:12 Travel History International Travel<30 days: No Contact w/Intl Traveler<30days: No Traveled to known affect area: No History of Present Illness HPI 62-year-old female with a significant history of anxiety and panic disorder presents to the emergency room for evaluation of the same. States she developed a panic attack this morning 8:00 while sitting on the couch. States she had similar panic attack about 2 months ago. She is on BuSpar and olanzapine which have been improving her symptoms but she still gets occasional breakthrough panic attacks. Her next appointment with her psychiatrist is in December. Patient came to the emergency room 2 months ago for the same and was prescribed Xanax. States she never had them filled because she does not like the way they make her feel. She had associated mild headache and chest tightness this morning that has resolved without medication. She denies current chest pain, shortness of breath, fever, or chills. PFSH Past Medical History Anxiety: Yes (panic attacks) Depression: Yes Heart Rhythm Problems: No Cancer: No Cardiac Catheterization: No Cardiovascular Problems: Yes High Cholesterol: No Congestive Heart Failure: No Diabetes: No Diminished Hearing: No Diverticulitis: Yes Endocrine: No Gastrointestinal Disorders: Yes (IRRITABLE BOWEL SYNDROME) Genitourinary: No Hiatal Hernia: Yes Heparin Induced Thrombocytopen: No Hypertension: Yes Immune Disorder: No Implanted Vascular Access Dvce: No Kidney Stones: Yes Musculoskeletal: No Neurologic: No Psychiatric: Yes Respiratory: No Immunizations Current: Yes Ulcer: Yes Menopausal: Yes : 1 Para: 1 Miscarriage: 0 : 0 Past Surgical History Abdominal Surgery: Yes (c section) Section: Yes Coronary Artery Bypass Graft: No Genitourinary Surgery: Yes (L kidney stent) Hysterectomy: No Tonsillectomy: Yes Other Surgery: Yes Family History Family Hypercholesterolemia: Yes Social History Alcohol Use: No Tobacco Use: No Substance Use: No Allergies-Medications (Allergen,Severity, Reaction): Coded Allergies: acetaminophen (Unverified Allergy, Severe, VOMITING, 09/21/17) ciprofloxacin (Unverified Allergy, Severe, Nausea/Vomiting, 09/21/17) hydrocodone (Unverified Allergy, Severe, VOMITING, 09/21/17) hydroxyzine (Unverified Adverse Reaction, Mild, Lethargy, 09/21/17) Reported Meds & Prescriptions Reported Meds & Active Scripts Active Xanax (Alprazolam) 0.25 Mg Tab 0.25 Mg PO Q8H PRN Zofran Odt (Ondansetron Odt) 4 Mg Tab 4 Mg SL Q6HR PRN Reported Buspirone (Buspirone HCl) 10 Mg Tab 10 Mg PO DAILY Olanzapine 5 Mg Tab 5 Mg PO HS Amlodipine (Amlodipine Besylate) 5 Mg Tab 5 Mg PO DAILY Review of Systems Except as stated in HPI: all other systems reviewed are Neg Physical Exam Narrative GENERAL: Well-nourished, well-developed female no acute distress. Afebrile. Ambulatory. SKIN: Focused skin assessment warm/dry. HEAD: Normocephalic. EYES: No scleral icterus. No injection or drainage. NECK: Supple, trachea midline. No JVD or lymphadenopathy. CARDIOVASCULAR: Regular rate and rhythm without murmurs, gallops, or rubs. RESPIRATORY: Breath sounds equal bilaterally. No accessory muscle use. PSYCHIATRIC: No delusional thought processes. No hallucinations. Flat affect. Data Data Last Documented VS Vital Signs Date Time Temp Pulse Resp B/P (MAP) Pulse Ox O2 Delivery O2 Flow Rate FiO2 09/21/17 12:24 98.4 87 18 128/74 (92) 98 Orders Orders Electrocardiogram (09/21/17 12:26) Ckmb (Isoenzyme) Profile (09/21/17 12:26) Complete Blood Count With Diff (09/21/17 12:26) Comprehensive Metabolic Panel (09/21/17 12:26) Magnesium (Mg) (09/21/17 12:26) Prothrombin Time / Inr (Pt) (09/21/17 12:26) Act Partial Throm Time (Ptt) (09/21/17 12:26) Troponin I (09/21/17 12:26) Chest, Pa & Lat (09/21/17 12:26) Hydroxyzine Pamoate (Vistaril) (09/21/17 15:30) Labs Laboratory Tests Test 09/21/17 13:15 White Blood Count 9.6 TH/MM3 Red Blood Count 4.59 MIL/MM3 Hemoglobin 12.8 GM/DL Hematocrit 38.0 % Mean Corpuscular Volume 82.8 FL Mean Corpuscular Hemoglobin 27.9 PG Mean Corpuscular Hemoglobin Concent 33.7 % Red Cell Distribution Width 15.2 % Platelet Count 295 TH/MM3 Mean Platelet Volume 8.2 FL Neutrophils (%) (Auto) 73.0 % Lymphocytes (%) (Auto) 17.4 % Monocytes (%) (Auto) 7.8 % Eosinophils (%) (Auto) 1.2 % Basophils (%) (Auto) 0.6 % Neutrophils # (Auto) 7.0 TH/MM3 Lymphocytes # (Auto) 1.7 TH/MM3 Monocytes # (Auto) 0.7 TH/MM3 Eosinophils # (Auto) 0.1 TH/MM3 Basophils # (Auto) 0.1 TH/MM3 CBC Comment DIFF FINAL Differential Comment Prothrombin Time 10.9 SEC Prothromb Time International Ratio 1.1 RATIO Activated Partial Thromboplast Time 25.7 SEC Blood Urea Nitrogen 9 MG/DL Creatinine 0.76 MG/DL Random Glucose 107 MG/DL Total Protein 8.1 GM/DL Albumin 3.8 GM/DL Calcium Level 10.0 MG/DL Magnesium Level 1.8 MG/DL Alkaline Phosphatase 104 U/L Aspartate Amino Transf (AST/SGOT) 13 U/L Alanine Aminotransferase (ALT/SGPT) 14 U/L Total Bilirubin 0.5 MG/DL Sodium Level 141 MEQ/L Potassium Level 3.6 MEQ/L Chloride Level 105 MEQ/L Carbon Dioxide Level 23.7 MEQ/L Anion Gap 12 MEQ/L Estimat Glomerular Filtration Rate 77 ML/MIN Total Creatine Kinase 75 U/L Troponin I LESS THAN 0.02 NG/ML MDM Medical Decision Making Medical Screen Exam Complete: Yes Emergency Medical Condition: Yes Medical Record Reviewed: Yes Differential Diagnosis Panic attack, anxiety, malingering Narrative Course 62-year-old female with significant anxiety history presents to the emergency room for evaluation of the same. Patient states symptoms started this morning while she was sitting on her couch. States that her typical of her anxiety attacks for which she has been seen in the emergency room multiple times. She was seen 2 months ago for the same thing discharge with Xanax but never had them filled because she does not like the way they make her feel. She had a mild headache and associated chest tightness this morning but those have resolved without any medications. She denies any other complaints at this time except for shaking. Patient was evaluated by [facility] 2.5 months ago and discharged after negative EKG and enzymes. She has a low probability of significant CAD. She had an extensive cardiac workup a little over one year ago that was negative. Patient is bizarre with a very flat affect. EKG shows sinus rhythm with short MA interval and a rate of [address] changes. CBC and CMP are unremarkable. Troponin is less than 0.02. Vital signs stable. When told that she would be going home she became disappointed and stated "I like to stay in the hospital" with a smile on her face. There are no indications for admission at this time. Patient is stable for outpatient follow -up with her psychiatrist and primary care physician. Diagnosis Primary Impression: Anxiety Referrals: [facility] (Out patient) Psychiatrist Additional Instructions: Follow-up with your psychiatrist if her medications are not effective. Return to the emergency room for worsening symptoms. Disposition: 01 DISCHARGE HOME Condition: Stable Alicia Boston Sep 21, 2017 15:30
[2017-09-21] MEDS ORDERED: BENZ0.5T PO (15:37)
[2017-09-21] MEDS ORDERED: hydrOXYzine PAMOATE 25 MG CAP PO ONE (15:45)
--- NOTE | 2017-09-22 23:48 | EKG ---
Date Performed: 09/21/2017 Time Performed: 13:14:11 PTAGE: 62 years EKG: Sinus rhythm WITH SHORT ND INTERVAL BORDERLINE ECG PREVIOUS TRACING : 07/26/2017 04.10 Since the previous tracing, no significant change noted DOCTOR: Reggie Nassar Interpretating Date/Time 09/22/2017 23:45:43
== END 2017-09-21 16:00 | disposition home or self-care (01) ==
LOC: NEPD 11:52
DX: F41.0 Panic disorder [episodic paroxysmal anxiety] (principal); R07.89 Other chest pain; I10 Essential (primary) hypertension; Z79.899 Other long term (current) drug therapy
CPT/HCPCS: 71046; 80053; 82550; 83735; 84484; 85025; 85610; 85730; 93005; 99285; Q0177

== ENCOUNTER 2018-06-08 10:14 | Observation (INO) ==
[2018-06-08] MEDS ORDERED: Aspirin 325 MG Tablet PO ONE (11:04)
--- NOTE | 2018-06-08 11:16 | ED ---
HPI General Chief Complaint: Chest Pain Stated Complaint: Chest pain/Anxiety Time Seen by Provider: 06/08/18 10:57 History of Present Illness HPI narrative: 62-year-old female with h/o HTN presents with chest pain. Patient states the pain began 2 hours ago while she was lying down watching television. Similar pain in the past but she was unsure the diagnosis. Pain described as being left-sided, intermittent, hours in duration, nonradiating, achy in quality, no alleviating or aggravating factors. She denies fever, chills, diaphoresis, shortness of breath, lower extremity edema, recent travel, or vomiting. She does endorse nausea. Last meal was 6:00 this morning. She denies having a lawyer but reports having a stress test years ago (2015, although I don't see full report subsequent notes state it was normal). Patient has had multiple ER visits this year for chest pain. Related Data Home Medications Medication Instructions Recorded Confirmed amlodipine 5 mg PO DAILY 02/09/18 06/08/18 benztropine 0.5 mg PO HS 02/09/18 06/08/18 buspirone 10 mg PO DAILY 02/09/18 06/08/18 olanzapine 5 mg PO HS 02/09/18 06/08/18 Allergies Allergy/AdvReac Type Severity Reaction Status Date / Time acetaminophen Allergy Severe VOMITING Verified 06/08/18 10:40 ciprofloxacin Allergy Severe Nausea/Vomi Verified 06/08/18 10:40 ting hydrocodone Allergy Severe VOMITING Verified 06/08/18 10:40 hydroxyzine AdvReac Mild Lethargy Verified 06/08/18 10:40 Review of Systems ROS: all other systems reviewed are negative [facility] Social History Social History Substance History: No History of Abuse Second Hand Smoke Exposure: No Smoking Status: Former smoker Tobacco Type: Cigarettes How Often Do You Have a Drink Containing Alcohol: Never Recent Travel in [facility] within the Last 8 Weeks: No Recent Out of Country Travel within the Last 8 Weeks: No Immunization History Tetanus Immunization: Unsure Exam Narrative Exam Narrative: GENERAL: No acute distress. SKIN: Focused skin assessment warm/dry. HEAD: Atraumatic. Normocephalic. EYES: Pupils equal and round. No scleral icterus. No injection or drainage. ENT: No nasal bleeding or discharge. Mucous membranes pink and moist. NECK: Trachea midline. No JVD. CARDIOVASCULAR: Regular rate and rhythm. No murmur appreciated. RESPIRATORY: No accessory muscle use. Clear to auscultation. Breath sounds equal bilaterally. GASTROINTESTINAL: Abdomen soft, non-tender, nondistended. Hepatic and splenic margins not palpable. MUSCULOSKELETAL: No obvious deformities. No clubbing. No cyanosis. No edema. NEUROLOGICAL: Awake and alert. No obvious cranial nerve deficits. Motor grossly within normal limits. Normal speech. PSYCHIATRIC: Appropriate mood and affect; insight and judgment normal. Course Initial Documented Vital Signs Temperature 98.1 F 06/08/18 10:38 Pulse Rate 88 06/08/18 10:38 Respiratory Rate 18 06/08/18 10:38 Blood Pressure 138/76 06/08/18 10:38 Pulse Oximetry 98 06/08/18 10:38 Last Documented Vital Signs Temperature 98.1 F 06/08/18 10:38 Pulse Rate 86 06/08/18 11:07 Respiratory Rate 20 06/08/18 11:07 Blood Pressure 125/80 06/08/18 11:07 Pulse Oximetry 97 06/08/18 11:41 Medical Decision Making MDM Narrative Medical decision making narrative: Patient presents to the emergency department complaining of chest pain. Patient placed on surveillance system monitor, continuous pulse ox, and IV access obtained. Aspirin 325 mg p.o., 1 sublingual nitroglycerin 0.4 mg, EKG, chest x-ray, and labs ordered. 1338: CXR: CONCLUSION: Mild chronic interstitial changes. Stable compared to prior exam.Known calcified splenic cyst measuring approximately 7 cm. U/A + blood and protein, remaining labs essentially wnl. Patient has been admitted to chest pain obs for further eval and mgmt. Medical Screen Exam Complete: Yes Emergency Medical Condition: Yes Lab Data Result diagrams: 06/08/18 11:30 06/08/18 11:30 Lab Results 06/08/18 06/08/18 06/08/18 Range/Units 11:30 11:30 11:30 WBC 9.8 (4.0-11.0) th/mm3 RBC 4.74 (4.00-5.30) mil/mm3 Hgb 12.5 (11.6-15.3) gm/dL Hct 37.5 (35.0-46.0) % MCV 79.2 L (80.0-100.0) fL MCH 26.3 L (27.0-34.0) pg MCHC 33.2 (32.0-36.0) % RDW 17.2 (11.6-17.2) % Plt Count 300 (150-450) th/mm3 MPV 8.6 (7.0-11.0) fL Neut % (Auto) 75.1 H (16.0-70.0) % Lymph % (Auto) 14.6 (9.0-44.0) % [place] % (Auto) 7.5 (0.0-8.0) % Eos % (Auto) 2.4 (0.0-4.0) % Baso % (Auto) 0.4 (0.0-2.0) % Neut # (Auto) 7.3 (1.8-7.7) th/mm3 Lymph # (Auto) 1.4 (1.0-4.8) th/mm3 [place] # (Auto) 0.7 (0.0-0.9) th/mm3 Eos # (Auto) 0.2 (0.0-0.4) th/mm3 Baso # (Auto) 0.0 (0.0-0.2) th/mm3 WBC Differential . Differential Comment Auto diff final PT 10.6 (9.8-11.6) sec INR 1.0 Ratio APTT 27.2 (23.4-31.7) sec Sodium 140 (136-145) meq/L Potassium 3.6 (3.5-5.1) meq/L Chloride 107 (98-107) meq/L Carbon Dioxide 25.5 (21.0-32.0) meq/L Anion Gap 8 (5-15) meq/L BUN 12 (7-18) mg/dL Creatinine 0.81 (0.50-1.00) mg/dL Estimated GFR 72 L (>89) mL/min Random Glucose 104 (74-106) mg/dL Calcium 8.9 (8.5-10.1) mg/dL Magnesium 2.1 (1.5-2.5) mg/dL Total Bilirubin 0.3 (0.2-1.0) mg/dL AST 12 L (15-37) U/L ALT 16 (10-53) U/L Alkaline Phosphatase 103 (45-117) U/L Troponin I Less than 0.02 L (0.02-0.05) ng/mL B-Natriuretic Peptide (0-100) pg/mL Total Protein 8.0 (6.4-8.2) g/dL Albumin 3.5 (3.4-5.0) g/dL Urine Color (Yellw/Straw) Urine Clarity (Clear) Urine pH (5.0-8.5) Ur Specific Hasty (1.002-1.035) Urine Protein (Neg-Trace) mg/dL Urine Glucose (UA) (Negative) mg/dL Urine Ketones (Negative) mg/dL Urine Occult Blood (Negative) Urine Nitrate (Negative) Urine Bilirubin (Negative) Urine Urobilinogen (Less than 2) mg/dL Ur Leukocyte Esterase (Negative) Urine RBC (0-3) /hpf Urine WBC (0-5) /hpf Ur Squamous Epith Cells (0-5) /hpf Urine Mucus (Occasional) /lpf Micro UA Comment Ur Microscopic Review Urine Culture Comments Urine Opiates Screen (Neg) Ur Barbiturates Screen (Neg) Ur Amphetamines Screen (Neg) U Benzodiazepines Scrn (Neg) Urine Cocaine Screen (Neg) U Cannabinoids Screen (Neg) 06/08/18 06/08/18 06/08/18 Range/Units 11:30 11:30 11:30 WBC (4.0-11.0) th/mm3 RBC (4.00-5.30) mil/mm3 Hgb (11.6-15.3) gm/dL Hct (35.0-46.0) % MCV (80.0-100.0) fL MCH (27.0-34.0) pg MCHC (32.0-36.0) % RDW (11.6-17.2) % Plt Count (150-450) th/mm3 MPV (7.0-11.0) fL Neut % (Auto) (16.0-70.0) % Lymph % (Auto) (9.0-44.0) % [place] % (Auto) (0.0-8.0) % Eos % (Auto) (0.0-4.0) % Baso % (Auto) (0.0-2.0) % Neut # (Auto) (1.8-7.7) th/mm3 Lymph # (Auto) (1.0-4.8) th/mm3 [place] # (Auto) (0.0-0.9) th/mm3 Eos # (Auto) (0.0-0.4) th/mm3 Baso # (Auto) (0.0-0.2) th/mm3 WBC Differential Differential Comment PT (9.8-11.6) sec INR Ratio APTT (23.4-31.7) sec Sodium (136-145) meq/L Potassium (3.5-5.1) meq/L Chloride (98-107) meq/L Carbon Dioxide (21.0-32.0) meq/L Anion Gap (5-15) meq/L BUN (7-18) mg/dL Creatinine (0.50-1.00) mg/dL Estimated GFR (>89) mL/min Random Glucose (74-106) mg/dL Calcium (8.5-10.1) mg/dL Magnesium (1.5-2.5) mg/dL Total Bilirubin (0.2-1.0) mg/dL AST (15-37) U/L ALT (10-53) U/L Alkaline Phosphatase (45-117) U/L Troponin I (0.02-0.05) ng/mL B-Natriuretic Peptide 35 (0-100) pg/mL Total Protein (6.4-8.2) g/dL Albumin (3.4-5.0) g/dL Urine Color Yellow (Yellw/Straw) Urine Clarity Clear (Clear) Urine pH 6.0 (5.0-8.5) Ur Specific Hasty 1.021 (1.002-1.035) Urine Protein 30 H (Neg-Trace) mg/dL Urine Glucose (UA) Negative (Negative) mg/dL Urine Ketones Negative (Negative) mg/dL Urine Occult Blood Moderate H (Negative) Urine Nitrate Negative (Negative) Urine Bilirubin Negative (Negative) Urine Urobilinogen 0.2 (Less than 2) mg/dL Ur Leukocyte Esterase Negative (Negative) Urine RBC 1 (0-3) /hpf Urine WBC 2 (0-5) /hpf Ur Squamous Epith Cells 1 (0-5) /hpf Urine Mucus Few H (Occasional) /lpf Micro UA Comment Culture not ind Ur Microscopic Review Not Reportable Urine Culture Comments Culture not ind Urine Opiates Screen Neg (Neg) Ur Barbiturates Screen Neg (Neg) Ur Amphetamines Screen Neg (Neg) U Benzodiazepines Scrn Neg (Neg) Urine Cocaine Screen Neg (Neg) U Cannabinoids Screen Neg (Neg) Imaging Data Radiologist's impression: Chest X-Ray 06/08/18 11:04 CONCLUSION: Mild chronic interstitial changes. Stable compared to prior exam. Known calcified splenic cyst measuring approximately 7 cm. ECG Data Attestation: I personally reviewed and interpreted this ECG as follows: (Sinus rhythm, short KS, rate 84, normal axis, QTC 391, Q wave in lead III) Discharge Plan Discharge Disposition Patient Disposition: 30 Still Patient Discharge Condition Condition: Stable Discharge Details Diagnosis: Chest pain Physicians Team ED Provider: Opal Maurer Primary Care Provider: Sarah Esteban Attending Provider: Brent Mckeon Status ED Status: Admitted Observation Patient
[2018-06-08 11:48] LABS: Baso % (Auto) 0.4 % (0.0-2.0); Eos # (Auto) 0.2 th/mm3 (0.0-0.4); Eos % (Auto) 2.4 % (0.0-4.0); Hematocrit 37.5 % (35.0-46.0); Hemoglobin 12.5 gm/dL (11.6-15.3); Lymph # (Auto) 1.4 th/mm3 (1.0-4.8); Lymph % (Auto) 14.6 % (9.0-44.0); Mean Corpuscular HGB Conc 33.2 % (32.0-36.0); Mean Corpuscular Hemoglobin 26.3 pg (27.0-34.0); Mean Corpuscular Volume 79.2 fL (80.0-100.0); Mean Platelet Volume 8.6 fL (7.0-11.0); Mono # (Auto) 0.7 th/mm3 (0.0-0.9); Mono % (Auto) 7.5 % (0.0-8.0); Neut # (Auto) 7.3 th/mm3 (1.8-7.7); Neut % (Auto) 75.1 % (16.0-70.0); Platelet Count 300 th/mm3 (150-450); Red Blood Count 4.74 mil/mm3 (4.00-5.30); Red Cell Distribution Width 17.2 % (11.6-17.2); White Blood Count 9.8 th/mm3 (4.0-11.0)
--- NOTE | 2018-06-08 11:51 | XR ---
EXAM DATE: 06/08/2018 11:46 AM EST AGE/SEX: 62 years / Female INDICATIONS: Chest pains, anxiety. CLINICAL DATA: This is the patient's initial encounter. Patient reports that signs and symptoms have been present for 1 day and indicates a pain score of 3/10. MEDICAL/SURGICAL HISTORY: None. None. [place] [facility] [place] & W/O CONTRAST[place] 08/30/2016. . FINDINGS: The heart is normal in size. There are chronic appearing interstitial changes within the pulmonary pa renchyma. These are stable compared to previous dated 05/11/2018. The visualized bony structures are intact. Note is made of a 6.9 cm calcified lesion in the left upper abdomen. This is stable compared to previ ous examination. This is known to represent a calcified splenic cyst by CT imaging. CONCLUSION: Mild chronic interstitial changes. Stable compared to prior exam. Known calcified splenic cyst measuring approximately 7 cm. Electronically signed by: Byron Moss MD 06/08/2018 11:49 AM EST
[2018-06-08 11:54] LABS: Amphetamine Screen,Urine Neg (Neg); Barbiturate Screen,Urine Neg (Neg); Cannabinoid Screen,Urine Neg (Neg); Cocaine Screen,Urine Neg (Neg)
[2018-06-08 11:56] LABS: Activated Partial Thrombo Time 27.2 sec (23.4-31.7); Prothrombin Time 10.6 sec (9.8-11.6)
[2018-06-08 11:58] LABS: Bilirubin,Urine Negative (Negative); Color,Urine Yellow (Yellw/Straw); Glucose,Urine (UA) Negative (Negative); Leukocyte Esterase,Urine Negative (Negative); Mucus,Urine Few /lpf (Occasional); Nitrite,Urine Negative (Negative); Opiate Screen,Urine Neg (Neg); Specific Gravity,Urine 1.021 (1.002-1.035); Squamous Epithelial Cell,Urine 1 /hpf (0-5)
[2018-06-08 11:59] LABS: Albumin 3.5 g/dL (3.4-5.0); Anion Gap 8 meq/L (5-15); Aspartate Aminotransferase 12 U/L (15-37); Blood Urea Nitrogen 12 mg/dL (7-18); Calcium 8.9 mg/dL (8.5-10.1); Carbon Dioxide 25.5 meq/L (21.0-32.0); Chloride 107 meq/L (98-107); Glomerular Filtration Rate 72 mL/min (>89); Glucose,Random 104 mg/dL (74-106); Magnesium 2.1 mg/dL (1.5-2.5); Potassium 3.6 meq/L (3.5-5.1); Sodium 140 meq/L (136-145)
[2018-06-08 12:00] LABS: Alanine Aminotransferase 16 U/L (10-53)
[2018-06-08 12:01] LABS: Clarity,Urine Clear (Clear)
[2018-06-08 12:02] LABS: Urobilinogen,Urine 0.2 mg/dL (Less than 2)
[2018-06-08 12:04] LABS: Alkaline Phosphatase 103 U/L (45-117)
--- NOTE | 2018-06-08 12:53 | ECG ---
Date Performed: 06/08/2018 Time Performed: 10:57:03 PTAGE: 62 years EKG: Sinus rhythm WITH SHORT TX INTERVAL BORDERLINE ECG NO PREVIOUS TRACING DOCTOR: Juan Miguel Atkins Interpretating Date/Time 06/08/2018 12:52:23
--- NOTE | 2018-06-08 14:03 | P.HPCA ---
History of Present Illness Primary Care Physician: Sarah Ballesteros MD Chief Complaint: Chest pain History of Present Illness: 62 year old female with history of hypertension and anxiety presents to ER for further evaluation of nonexertional chest pain. Onset 0800, while watching television. Location left anterior chest. Characterized as "aching." No radiation. Pain scale 2-3/10. Associated symptom of nausea. Denied vomiting, dyspnea, or diaphoresis. Duration 2 hours. No precipitating factors, although endorses chronic anxiety with an recent increase in anxiety. No relieving factors. Endorses similar chest pain for "years," usually occurs every few months, generally lasting for a few hours. Cause unknown, but reports being told chest discomfort related to anxiety. Prior episode of chest pain one month ago. Reports multiple ER visits for evaluation of similar chest pain. No recent cardiac testing, no known CAD. No current chest discomfort. No recent illness, fever, dysuria, injury, or change in appetite. Past cardiac testing 11/08/2015 Lexiscan-no evidence of ischemia or infarct. Never required cardiac catheterization or follow up with a mica miner. Social history Known hypertension. No known CAD, hyperlipidemia, or diabetes. Former 21 pack year smoker. Denies alcohol or recreational drug use. Endorses sedentary lifestyle. Disabled. Family history Noncontributory for early onset cardiovascular disease. - Diagnosis (1) Atypical chest pain (2) Hypertension (3) Anxiety (4) Proteinuria, unspecified Review of Systems All other systems reviewed negative except as stated in HPI PMFSH - History History Provided By: Patient - Medical / Surgical Hx Neg / Unobtainable Surgical History: No Previous Surgery - Medical History Medical History: Medical History (Last Reviewed 06/08/18 @ 13:47 by ELEUTERIO Nguyen) Anxiety Diverticulitis HTN (hypertension) IBS (irritable bowel syndrome) - Surgical History Surgical History: Surgical History (Last Reviewed 06/08/18 @ 13:47 by ELEUTERIO Nguyen) No history of previous surgery - Social History I have reviewed the patient's Social History: Yes - Tobacco History Second Hand Smoke Exposure: No Tobacco Use In Past 30 Days: No Smoking Status: Former smoker Tobacco Type: Cigarettes Packs Per Day: 0.5 Years Smoked: 42 Number of Pack Years (if former smoker): 21 Smoking End Date: Quit 3 years ago - Alcohol History How Often Do You Have a Drink Containing Alcohol: Never - Substance Use History Substance History: No History of Abuse - Travel History History of Recent Travel: No Recent Travel in the [place] Within the Last 8 Weeks: No Recent Travel Out of the Country Within the Last 8 Weeks: No - Immunization History Tetanus Immunization: Unsure Medications and Allergies Active Medications: Active Medications Sodium Chloride (Ns Flush) 2 ml IV.FLUSH BID FREDY Sodium Chloride (Ns Flush) 2 ml IV.FLUSH PRN PRN PRN Reason: FLUSH AFTER USING IV ACCESS Allergies Allergy/AdvReac Type Severity Reaction Status Date / Time acetaminophen Allergy Severe VOMITING Verified 06/08/18 10:40 ciprofloxacin Allergy Severe Nausea/Vomi Verified 06/08/18 10:40 ting hydrocodone Allergy Severe VOMITING Verified 06/08/18 10:40 hydroxyzine AdvReac Mild Lethargy Verified 06/08/18 10:40 Home Medications Medication Instructions Recorded Confirmed Type amlodipine 5 mg PO DAILY 02/09/18 06/08/18 History benztropine 0.5 mg PO HS 02/09/18 06/08/18 History buspirone 10 mg PO DAILY 02/09/18 06/08/18 History olanzapine 5 mg PO HS 02/09/18 06/08/18 History Exam Vital signs: Vital Signs 06/08/18 10:38 06/08/18 10:39 06/08/18 11:07 Temperature 98.1 F Pulse Rate 88 85 Respiratory Rate 18 20 20 Blood Pressure 138/76 125/80 125/80 Pulse Oximetry 98 99 97 06/08/18 11:41 Temperature Pulse Rate Respiratory Rate Blood Pressure Pulse Oximetry 97 Intake & Output 06/07/18 06/08/18 06/08/18 18:59 06:59 18:59 Weight 52.163 kg Narrative: GENERAL: Alert WN, WD, NAD, pleasant, anxious, female who appears older than stated age HEAD: NC, AT EYES: Sclera clear NECK: Supple, no masses, trachea midline CV: RRR, without murmur, rub, gallop, no JVD, S1-S2 no S3-S4. Left anterior chest discomfort reproduced with light palpation. RESP: Clear lungs throughout bilateral, no crackles, wheeze, rhonchi, symmetrical chest rise, nonlabored, able to speak in full sentences ABD: Soft, NT, ND, no masses, positive bowel tones EXT: Pulses +2x4, no dependent edema, bilateral hands tremors MS: Normal tone x4 extremities, nontender, no obvious deformities, full range of motion NEURO: CN II through CN XII grossly intact, motor strength 5/5 PSYCH: A+O x3, flat affect, appropriate speech, mildly anxious mood, appropriate insight and judgment SKIN: Normal turgor, normal texture, no lesions, no rashes, even hair distribution Results 06/08/18 11:06/08/18 11:30 Cardiac Enzymes 06/08/18 06/08/18 Range/Units 11: 11:30 AST 12 L (15-37) U/L Troponin I Less than 0.02 L (0.02-0.05) ng/mL B-Natriuretic Peptide 35 (0-100) pg/mL Coagulation 06/08/18 06/08/18 Range/Units 11:30 11:30 PT 10.6 (9.8-11.6) sec APTT 27.2 (23.4-31.7) sec B-Natriuretic Peptide 35 (0-100) pg/mL CBC 06/08/18 Range/Units 11:30 WBC 9.8 (4.0-11.0) th/mm3 RBC 4.74 (4.00-5.30) mil/mm3 Hgb 12.5 (11.6-15.3) gm/dL Hct 37.5 (35.0-46.0) % Plt Count 300 (150-450) th/mm3 Neut # (Auto) 7.3 (1.8-7.7) th/mm3 Lymph # (Auto) 1.4 (1.0-4.8) th/mm3 [place] # (Auto) 0.7 (0.0-0.9) th/mm3 Eos # (Auto) 0.2 (0.0-0.4) th/mm3 Baso # (Auto) 0.0 (0.0-0.2) th/mm3 Comprehensive Metabolic Panel 06/08/18 Range/Units 11:30 Sodium 140 (136-145) meq/L Potassium 3.6 (3.5-5.1) meq/L Chloride 107 (98-107) meq/L Carbon Dioxide 25.5 (21.0-32.0) meq/L BUN 12 (7-18) mg/dL Creatinine 0.81 (0.50-1.00) mg/dL Calcium 8.9 (8.5-10.1) mg/dL AST 12 L (15-37) U/L ALT 16 (10-53) U/L Alkaline Phosphatase 103 (45-117) U/L Total Protein 8.0 (6.4-8.2) g/dL Albumin 3.5 (3.4-5.0) g/dL Intake and Output 06/07/18 06/08/18 06/08/18 22:59 06:59 14:59 Other: Weight 52.163 kg Patient Weight 06/09/18 06:59 Weight 52.163 kg - Imaging and Cardiology Imaging: Impressions Chest X-Ray 06/08/18 11:04 CONCLUSION: Mild chronic interstitial changes. Stable compared to prior exam. Known calcified splenic cyst measuring approximately 7 cm. EKG interpretations - Dysrhythmias Sinus rhythms and dysrhythmias: sinus tachycardia (normal axis, no st t segment change) Caprini VTE Risk Assessment Caprini VTE Risk Assessment: Moderate/High Risk (score >= 2) Caprini Risk Assessment Model: Point Value = 1 Point Value = 2 Point Value = 3 Point Value = 5 Age 41-60 Minor surgery BMI > 25 kg/m2 Swollen legs Varicose veins or History of unexplained or recurrent spontaneous Oral contraceptives or hormone replacement Sepsis (< 1 month) Serious lung disease, including pneumonia (< 1 month) Abnormal pulmonary function Acute myocardial infarction Congestive heart failure (< 1 month) History of inflammatory bowel disease Medical patient at bed rest Age 61-74 Arthroscopic surgery Major open surgery (> 45 min) Laparoscopic surgery (> 45 min) Malignancy Confined to bed (> 72 hours) Immobilizing plaster cast Central venous access Age >= 75 History of VTE Family history of VTE Factor V Leiden Prothrombin [id number] Lupus anticoagulant Anticardiolipin antibodies Elevated serum homocysteine Heparin-induced thrombocytopenia Other congenital or acquired thrombophilia Stroke (< 1 month) Elective arthroplasty Hip, pelvis, or leg fracture Acute spinal cord injury (< 1 month) Prophylaxis Regimen: Total Risk Factor Score Risk Level Prophylaxis Regimen 0-1 Low Early ambulation 2 Moderate Order ONE of the following: *Sequential Compression Device (SCD) *Heparin 5000 units SQ BID 3-4 Higher Order ONE of the following medications: *Heparin 5000 units SQ TID *Enoxaparin/Lovenox 40 mg SQ daily (WT < 150 kg, CrCl > 30 mL/min) *Enoxaparin/Lovenox 30 mg SQ daily (WT < 150 kg, CrCl > 10-29 mL/min) *Enoxaparin/Lovenox 30 mg SQ BID (WT < 150 kg, CrCl > 30 mL/min) AND/OR *Sequential Compression Device (SCD) 5 or more Highest Order ONE of the following medications: *Heparin 5000 units SQ TID (Preferred with Epidurals) *Enoxaparin/Lovenox 40 mg SQ daily (WT < 150 kg, CrCl > 30 mL/min) *Enoxaparin/Lovenox 30 mg SQ daily (WT < 150 kg, CrCl > 10-29 mL/min) *Enoxaparin/Lovenox 30 mg SQ BID (WT < 150 kg, CrCl > 30 mL/min) AND *Sequential Compression Device (SCD) Assessment and Plan - Assessment (1) Atypical chest pain Code(s): R07.89 - Other chest pain Status: Acute Plan: Admitted to chest pain center. Continue ruling out ACS with standard chest pain center protocol, including 3 sets of EKGs and cardiac enzymes. Will be seen and evaluated by Dr. Brent Mckeon. Atypical chest pain and has been evaluated multiple times for similar chest discomfort. No recent cardiac testing, most recent completed 11/08/15. Discussed possibility of repeating cardiac stress testing, however this will be determined after evaluation by mica miner. Patient agreeable to plan of care and verbalized understanding. (2) Hypertension Code(s): I10 - Essential (primary) hypertension Status: Chronic Plan: Continue amlodipine. (3) Anxiety Code(s): F41.9 - Anxiety disorder, unspecified Status: Chronic Plan: Continue buspirone and olanzapine. Reports also taking benztropine QHS for anxiety and tremors. No acute anxiety. Follow up with primary care provider upon discharge as previously instructed. (4) Proteinuria, unspecified Code(s): R80.9 - Proteinuria, unspecified Status: Acute Plan: Discussed protein and occult blood in urine sample and instructed to follow up with primary care provider. (2) Hypertension Qualifiers: Hypertension type: unspecified Qualified Code(s): I10 - Essential (primary) hypertension (4) Proteinuria, unspecified Qualifiers: Proteinuria type: unspecified Qualified Code(s): R80.9 - Proteinuria, unspecified
[2018-06-08 15:02] LABS: Creatine Kinase 114 U/L (26-192)
[2018-06-08 20:12] LABS: Creatine Kinase 128 U/L (26-192)
[2018-06-09] MEDS ORDERED: Ibuprofen 600 MG Tablet PO PRN (07:24)
[2018-06-09] MEDS ORDERED: Acetaminophen 325 MG Tablet PO PRN (07:50)
--- NOTE | 2018-06-09 07:53 | P.PNCA ---
Subjective Interval history: No further chest pain. Requesting Tylenol and Pepto Bismol for mild headache and upset stomach. Reports taking at home, denies allergy to Tylenol. Medications and Allergies Active Medications: Active Medications Acetaminophen (Tylenol) 650 mg PO Q4H PRN PRN Reason: HEADACHE Amlodipine Besylate (Norvasc) 5 mg PO DAILY [facility] Benztropine Mesylate (Cogentin) 0.5 mg PO HS [facility] Last Admin: 06/08/18 20:46 Dose: 0.5 mg Bismuth Subsalicylate (Pepto-Bosmol Liq) 15 ml PO NOW ONE Stop: 06/09/18 07:27 Buspirone HCl (Buspar) 10 mg PO DAILY [facility] Last Admin: 06/08/18 16:38 Dose: 10 mg Ibuprofen (Motrin) 600 mg PO Q6H PRN PRN Reason: HEADACHE Miscellaneous (Pill Splitter) 1 each OTHER UNSCH PRN PRN Reason: PILL SPLITTER Olanzapine (Zyprexa) 5 mg PO [facility] Last Admin: 06/08/18 20:47 Dose: 5 mg Sodium Chloride (Ns Flush) 2 ml IV.FLUSH BID [facility] Last Admin: 06/08/18 20:47 Dose: 2 ml Sodium Chloride (Ns Flush) 2 ml IV.FLUSH PRN PRN PRN Reason: FLUSH AFTER USING IV ACCESS Allergies Allergy/AdvReac Type Severity Reaction Status Date / Time ciprofloxacin Allergy Severe Nausea/Vomi Verified 06/08/18 10:40 ting hydrocodone Allergy Severe VOMITING Verified 06/08/18 10:40 hydroxyzine AdvReac Mild Lethargy Verified 06/08/18 10:40 Home Medications Medication Instructions Recorded Confirmed Type amlodipine 5 mg PO DAILY 02/09/18 06/08/18 History benztropine 0.5 mg PO HS 02/09/18 06/08/18 History buspirone 10 mg PO DAILY 02/09/18 06/08/18 History olanzapine 5 mg PO HS 02/09/18 06/08/18 History Physical Exam Vital signs: Vital Signs 06/08/18 10:38 06/08/18 10:39 06/08/18 11:07 Temperature 98.1 F Pulse Rate 88 85 Respiratory Rate 18 20 20 Blood Pressure 138/76 125/80 125/80 Pulse Oximetry 98 99 97 06/08/18 11:41 06/08/18 16:00 06/08/18 20:00 Temperature 98.3 F 98.7 F Pulse Rate 83 90 Respiratory Rate 16 20 Blood Pressure 144/88 H 126/77 Pulse Oximetry 97 99 98 06/08/18 23:55 06/09/18 04:00 06/09/18 04:07 Temperature 97.8 F 97.6 F Pulse Rate 87 93 H 80 Respiratory Rate 16 16 Blood Pressure 134/76 121/86 Pulse Oximetry 97 98 06/09/18 07:35 Temperature 97.9 F Pulse Rate 93 H Respiratory Rate 20 Blood Pressure 119/71 Pulse Oximetry 98 Intake & Output 06/08/18 06/09/18 06/09/18 18:59 06:59 18:59 Intake Total 240 / 240 Balance 240 / 240 Weight 52.163 kg Intake: Oral 240 / 240 Other: # Voids 2 5 Weight On Admission 52.16 kg - Constitutional no acute distress - Routine HEENT Exam Head: Present: normocephalic, atraumatic - Routine Respiratory Exam Present: CTA bilaterally - Routine Cardiovascular Exam Present: RRR. Absent: murmur, gallop, rubs - Routine Neurological Exam Present: alert, oriented X3 - Routine Psychiatric Exam Absent: depressed, anxious (flat affect) Results 06/08/18 11:30 06/08/18 11:30 Cardiac Enzymes 06/08/18 06/08/18 06/08/18 Range/Units 07:21 11:30 11:30 AST 12 L (15-37) U/L CK-MB (CK-2) (0.5-3.6) ng/mL Troponin I Less than 0.02 L Less than 0.02 L (0.02-0.05) ng/mL B-Natriuretic Peptide 35 (0-100) pg/mL 06/08/18 Range/Units 14:09 AST (15-37) U/L CK-MB (CK-2) Less than 1.0 (0.5-3.6) ng/mL Troponin I Less than 0.02 L (0.02-0.05) ng/mL B-Natriuretic Peptide (0-100) pg/mL Coagulation 06/08/18 06/08/18 Range/Units 11:30 11:30 PT 10.6 (9.8-11.6) sec APTT 27.2 (23.4-31.7) sec B-Natriuretic Peptide 35 (0-100) pg/mL CBC 06/08/18 Range/Units 11:30 WBC 9.8 (4.0-11.0) th/mm3 RBC 4.74 (4.00-5.30) mil/mm3 Hgb 12.5 (11.6-15.3) gm/dL Hct 37.5 (35.0-46.0) % Plt Count 300 (150-450) th/mm3 Neut # (Auto) 7.3 (1.8-7.7) th/mm3 Lymph # (Auto) 1.4 (1.0-4.8) th/mm3 [place] # (Auto) 0.7 (0.0-0.9) th/mm3 Eos # (Auto) 0.2 (0.0-0.4) th/mm3 Baso # (Auto) 0.0 (0.0-0.2) th/mm3 Comprehensive Metabolic Panel 06/08/18 Range/Units 11:30 Sodium 140 (136-145) meq/L Potassium 3.6 (3.5-5.1) meq/L Chloride 107 (98-107) meq/L Carbon Dioxide 25.5 (21.0-32.0) meq/L BUN 12 (7-18) mg/dL Creatinine 0.81 (0.50-1.00) mg/dL Calcium 8.9 (8.5-10.1) mg/dL AST 12 L (15-37) U/L ALT 16 (10-53) U/L Alkaline Phosphatase 103 (45-117) U/L Total Protein 8.0 (6.4-8.2) g/dL Albumin 3.5 (3.4-5.0) g/dL Intake and Output 06/08/18 06/09/18 06/09/18 22:59 06:59 14:59 Intake Total 240 / 240 Balance 240 / 240 Intake: Oral 240 / 240 Other: # Voids 2 5 Weight 52.163 kg Weight On Admission 52.16 kg - Imaging and Cardiology Imaging: Impressions Chest X-Ray 06/08/18 11:04 CONCLUSION: Mild chronic interstitial changes. Stable compared to prior exam. Known calcified splenic cyst measuring approximately 7 cm. Assessment and Plan - Assessment (1) Atypical chest pain Code(s): R07.89 - Other chest pain Status: Acute Plan: ACS ruled out with 3 sets of EKGs and cardiac enzymes. Monitored on telemetry overnight. Proceed with Lexiscan as previously recommended. (2) Hypertension Code(s): I10 - Essential (primary) hypertension Status: Chronic Plan: Continue amlodipine. (3) Anxiety Code(s): F41.9 - Anxiety disorder, unspecified Status: Chronic Plan: Continue buspirone and olanzapine. Reports also taking benztropine QHS for anxiety and tremors. No acute anxiety. Follow up with primary care provider upon discharge as previously instructed. (4) Proteinuria, unspecified Code(s): R80.9 - Proteinuria, unspecified Status: Acute Plan: Discussed protein and occult blood in urine sample and instructed to follow up with primary care provider. (2) Hypertension Qualifiers: Hypertension type: unspecified Qualified Code(s): I10 - Essential (primary) hypertension (4) Proteinuria, unspecified Qualifiers: Proteinuria type: unspecified Qualified Code(s): R80.9 - Proteinuria, unspecified
[2018-06-09] MEDS ORDERED: Bismuth Subsalicylate Susp 240 ML Bottle PO ONE (08:30)
[2018-06-09] MEDS ORDERED: amLODIPine 5 MG Tablet PO SCH (09:00)
[2018-06-09] MEDS ORDERED: Regadenoson Inj 0.4 MG/5 ML Syringe IV.PUSH ONE (09:49)
--- NOTE | 2018-06-09 11:19 | NM ---
EXAM DATE: 06/09/2018 11:05 AM EST AGE/SEX: 62 years / Female INDICATIONS:Angina. . Left sided non-exertional chest pain. CLINICAL DATA: This is the patient's initial encounter. Patient reports that signs and symptoms have been present for 1 day and indicates a pain score of 3/10. MEDICAL/SURGICAL HISTORY: Hypertension. Irritable bowel syndrome. Anxiety, diverticulitis. No ne. COMPARISON: [facility], MYOCARDIAL PERF PHARM SPECT, 11/08/2015. . DOSE: 8.1 mCi Tc 99m Myoview at rest 25.5 mCi [id number] at stress 0.4 mg Lexiscan STRESS SYMPTOMS: Dizziness with nausea. EJECTION FRACTION: >70 % TECHNIQUE: The patient underwent pharmacologic stress with infusion of prescribed dose. Continuous ECG tracing was monitored during stress. Gated SPECT imaging was performed after stress and conventi onal SPECT imaging was performed at rest. The examination was performed on a SPECT/CT scanner, both attenuation and non-corrected datasets were reviewed. FINDINGS: Distribution: The maximum perfused segment at stress is in the lateral wall. Perfusion Study: The pattern of perfusion at stress is within normal limits. Gated Study: There are intact wall motion and wall thickening without hypokinetic or dyskinetic segm ents. The ejection fraction is calculated at >70%. RISK CATEGORY: Low (<1% Annual Motality Rate) CONCLUSION: Negative examination. Electronically signed by: Vinayak Sagastume MD 06/09/2018 11:18 AM EST
--- NOTE | 2018-06-09 14:25 | ECG ---
Date Performed: 06/08/2018 Time Performed: 19:33:42 PTAGE: 62 years EKG: Sinus rhythm NORMAL ECG NO PREVIOUS TRACING DOCTOR: Brent Mckeon Interpretating Date/Time 06/09/2018 14:24:21
--- NOTE | 2018-06-09 14:26 | ECG ---
Date Performed: 06/08/2018 Time Performed: 14:36:02 PTAGE: 62 years EKG: Sinus rhythm NORMAL ECG PREVIOUS TRACING : 06/08/2018 10.57 Since previous tracing, no significant change noted DOCTOR: Brent Mckoen Interpretating Date/Time 06/09/2018 14:25:35
--- NOTE | 2018-06-09 15:10 | TR ---
Date Performed: 06/09/2018 Time Performed: 09:50:32 DOCTOR: Brent Mckeon DRUG LIST: CLINICAL HISTORY: REASON FOR TEST: REASON FOR ENDING: OBSERVATION: CONCLUSION: COMMENTS: Lexiscan stress test was performed under standard four minute protocol. Radionuclide was injected one minute prior to ending the test. No electrocardiographic abormalities were present t o suggest ischemia. Nuclear imaging and interpretation are pending.
== END 2018-06-09 11:55 | disposition home or self-care (01) ==
LOC: NEPC 10:14 → NEDA 10:14 → NEPFCDU 14:00
PROVIDERS: ADMIT Internal Medicine Cardiovascular Disease; ATTEND Internal Medicine Cardiovascular Disease
DX: R94.31 Abnormal electrocardiogram [ECG] [EKG]; R07.89 Other chest pain; Z88.6 Allergy status to analgesic agent; K58.9 Irritable bowel syndrome, unspecified; F17.210 Nicotine dependence, cigarettes, uncomplicated; Z88.1 Allergy status to other antibiotic agents; I10 Essential (primary) hypertension; F41.9 Anxiety disorder, unspecified; D73.4 Cyst of spleen